=== PATIENT | male | born 1960 | race Caucasian/White ===

== ENCOUNTER 2025-05-11 14:59 | Inpatient (IN) | payer MEDICARE, SELFPAY ==
--- NOTE | ~2025-05-11 | XR_ITS ---
MODIFIED ESOPHAGRAM HISTORY: Dysphagia. TECHNIQUE: Modified barium esophagram was performed on 05/17/2025. I administered fluoroscopy and perfo rmed the exam with speech pathologist. Patient was seated for lateral fluoroscopic imaging for inges tion of thin liquids, pudding, solids and quantified amounts, followed by thin liquids in uncontrolle d amounts. This was recorded on tape. A single fluoroscopic spot image was also recorded. The DAP for this procedure was 3.101 Gycm2. The amount of fluoroscopy time used during this procedure was 4.7 mi nutes. FINDINGS: Oral stage: Reduced lingual movement. Pharyngeal stage: Reduced laryngeal elevation and adduction. Reduced tongue base retraction and phary ngeal squeeze. There is vallecular residue. There was laryngeal penetration with aspiration.. Cervical/esophageal stage: Adequate function. IMPRESSION: Oropharyngeal dysphagia with laryngeal penetration and aspiration. Please correlate with speech pathologist findings and specific feeding recommendations. Reviewed, dictated and finalized at location A. IMPRESSION: Oropharyngeal dysphagia with laryngeal penetration and aspiration. Please correlate with speech pathologist findings and specific feeding recomme ndations.
--- NOTE | ~2025-05-11 | XR_ITS ---
Exam: Abdomen 1V HISTORY: tube placement COMPARISON: None. TECHNIQUE: Supine images of the lower chest and upper abdomen FINDINGS: Nasogastric tube extends into the left upper quadrant, presumably within the proximal stomach, versus the gastroesophageal junction. IMPRESSION: Advancement of approximately 3 to 4 cm is recommended for optimal radiographic placement. Reviewed, dictated and finalized at location A.
--- NOTE | ~2025-05-11 | CT_ITS ---
CT abdomen pelvis w con Ordering provider: Vargas Bradley History: 64 years Male with . vomiting . Comparison: None. Technique: CT abdomen and pelvis with IV and without oral contrast. Automated exposure control and it erative reconstruction technique were employed. The dose-length product was 919.64 mGy-cm. 100 mL Omn ipaque 350 was given IV. Findings: VISUALIZED LOWER CHEST: Normal. UPPER ABDOMINAL ORGANS: Liver: Normal. Gallbladder: Cholelithiasis. Spleen: Normal. Stomach/duodenum: Nasogastric tube is seen in the stomach. Thickened lower esophagus which may indica te esophagitis. Pancreas: Slightly atrophic. Adrenals: Normal. Kidneys: hypodensity in the left kidney midpole which measures 1.6 cm which may be a mass. Follow-up advised. PELVIC ORGANS: The bladder is normal. Right inguinal undescended testicle is seen. BOWEL AND MESENTERY: Colon: No evidence of diverticulitis or appendicitis Small Bowel: Normal. No obstruction. Peritoneum/mesentery: No free air or free fluid. No mesenteric lymphadenopathy. RETROPERITONEUM: Moderate atheromatous disease of the abdominal aorta. No retroperitoneal lymphaden opathy. MUSCULOSKELETAL: Superficial soft tissues: Hypodensity measuring 3.2 x 2.2 cm suggestive of a cyst most likely a cyst. Small fat-containing umbilical hernia. Otherwise, The superficial soft tissues are normal. Bones: Age appropriate degenerative changes of the spine. Old healed left lower thorax rib fractures are noted. Bilateral sacroiliitis. Bilateral hip osteoarthritic changes. Bilateral femoral head AVN. IMPRESSION: 1. No evidence of appendicitis, diverticulitis or intestinal obstruction. 2. Cholelithiasis. 3. Hypodensity in the left kidney midpole which may be a mass or focal infection. Follow-up advised. 4. Bilateral femoral head AVN. 5. Right inguinal undescended or retractile right testicle. Reviewed, dictated and finalized at location A. IMPRESSION: 1. No evidence of appendicitis, diverticulitis or intestinal obstruction. 2. Cholelithiasis. 3. Hypodensity in the left kidney midpole which may be a mass or focal infecti on. Follow-up advised. 4. Bilateral femoral head AVN. 5. Right inguinal undescended or retractile right testicle.
--- NOTE | ~2025-05-11 | XR_ITS ---
XR abdomen gastric tube insert Ordering provider: LILLIAM Villa History: . NG placement/confirmataion . Comparison: None. FINDINGS/impression: Nasogastric tube is seen with the tip in the body of the stomach Reviewed, dictated and finalized at location A.
[2025-05-11 15:03] VITALS: BP 111/99; PULSE 72; RESP 17; TEMP 36.6; O2SAT 99
--- NOTE | 2025-05-11 15:26 | ED_ITS ---
HPI - General Adult General Chief complaint: Nausea/Vomiting/Diarrhea <Vargas Bradley MD - Last Filed: 05/11/25 18:10> Stated complaint: coffee ground emesis <Vargas Bradley MD - Last Filed: 05/11/25 18:10> Time Seen by Provider: 05/11/25 15:06 <Vargas Bradley MD - Last Filed: 05/11/25 18:10> History of Present Illness HPI narrative: Patient is a 64-year-old male who presents ER with concerns for coffee- ground emesis. Had an episode of emesis at his snf was sent in. History of CVA with aphasia. Can answer yes and no with head nodding. Contracted on the right side. No blood thinners but he does take an aspirin. < Vargas Bradley MD - Last Filed: 05/11/25 18:10> Related Data Allergies/adverse reactions: Allergies Allergy/AdvReac Type Severity Reaction Status Date / Time No Known Allergies Allergy Verified 05/11/25 15:31 <Vargas Bradley MD - Last Filed: 05/11/25 18:10> Review of Systems 2 Review of Systems: ROS unobtainable: Yes unobtainable due to medical condition <Vargas Bradley MD - Last Filed: 05/11/25 18:10> PMFSH Past Medical History Medical History: Medical History (Updated 05/11/25 @ 19:08 by You Thornton MD) Depression Hypertension CVA (cerebral vascular accident) <Vargas Bradley MD - Last Filed: 05/11/25 18:10> Exam 2 Narrative: GENERAL: Chronically ill-appearing, well-nourished, and in no acute distress. HEAD: Normocephalic, atraumatic. EYES: PERRL and EOMI. ENT: Nares clear, no rhinorrhea or epistaxis. Mucous membranes moist. NECK: Supple. CHEST: Clear to auscultation. No respiratory distress. HEART: Regular rate and rhythm. Normal peripheral pulses. ABDOMEN: Soft, nontender, nondistended. Pale/andre-colored stool that is guaiac positive. No gross blood. EXTREMITIES: Right-sided contractures and weakness. SKIN: Warm, dry, no rash. NEURO: Awake alert, aphasic but shakes head yes or no. <Vargas Bradley MD - Last Filed: 05/11/25 18:10> Course Course Emergency Course: SERENITY to Dr. Thornton. CT pending. Protonix orderd. NG to initially with some dark coffee-ground colored output that was less than 10 mL. He was lavaged with several hundred mL of fluid which came back clear. <Vargas Bradley MD - Last Filed: 05/11/25 18:10> SERENITY to Dr. Thornton. CT pending. Protonix orderd. NG to initially with some dark coffee-ground colored output that was less than 10 mL. He was lavaged with several hundred mL of fluid which came back clear. Patient care taken over by previous provider at 6:00pm pending CT scan and admission to the hospital for possible upper GI bleeding. Patient came from his nursing facility for an episode of coffee-ground emesis. NG tube was placed here with lavage of 10 mL of coffee-ground emesis appearing material and then flushing clear afterwards. He was given a PPI and given Zofran. CT scan shows some esophagitis but no other acute intra-abdominal pathology that explains his symptoms. His laboratory studies initially had some low hemoglobin which seem to resolve on the 2nd set of labs and potentially the 1st set was an error given that lab rejected the initial CMP as well. Spoke to the hospitalist for admission to the hospital for GI consultation and PPI treatment. Will maintain the NG tube. Admission orders and consult placed, placed on maintenance fluids, as needed Zofran and b.i.d. Protonix. <You Thornton MD - Last Filed: 05/11/25 19:08> Vital Signs Vital signs: Vital Signs Temperature 36.6 C 05/11/25 15:03 Pulse Rate 72 05/11/25 15:03 Respiratory Rate 17 05/11/25 15:03 Blood Pressure 111/99 H 05/11/25 15:03 Pulse Oximetry 99 05/11/25 15:03 Oxygen Delivery Room Air 05/11/25 15:03 Temperature 36.7 C 05/11/25 16:23 Pulse Rate 73 05/11/25 18:54 Respiratory Rate 19 05/11/25 18:54 Blood Pressure 147/82 H 05/11/25 18:54 Pulse Oximetry 98 05/11/25 18:54 Oxygen Delivery Room Air 05/11/25 15:03 <Vargas Bradley MD - Last Filed: 05/11/25 18:10> Vital Signs Temperature 36.6 C 05/11/25 15:03 Pulse Rate 72 05/11/25 15:03 Respiratory Rate 17 05/11/25 15:03 Blood Pressure 111/99 H 05/11/25 15:03 Pulse Oximetry 99 05/11/25 15:03 Oxygen Delivery Room Air 05/11/25 15:03 Temperature 36.7 C 05/11/25 16:23 Pulse Rate 73 05/11/25 18:54 Respiratory Rate 19 05/11/25 18:54 Blood Pressure 147/82 H 05/11/25 18:54 Pulse Oximetry 98 05/11/25 18:54 Oxygen Delivery Room Air 05/11/25 15:03 <You Thornton MD - Last Filed: 05/11/25 19:08> Medical Decision Making Vital Signs Vital Signs: Vital Signs Temperature 36.6 C 05/11/25 15:03 Pulse Rate 72 05/11/25 15:03 Respiratory Rate 17 05/11/25 15:03 Blood Pressure 111/99 H 05/11/25 15:03 Pulse Oximetry 99 05/11/25 15:03 Oxygen Delivery Room Air 05/11/25 15:03 Temperature 36.7 C 05/11/25 16:23 Pulse Rate 73 05/11/25 18:54 Respiratory Rate 19 05/11/25 18:54 Blood Pressure 147/82 H 05/11/25 18:54 Pulse Oximetry 98 05/11/25 18:54 Oxygen Delivery Room Air 05/11/25 15:03 <Vargas Bradley MD - Last Filed: 05/11/25 18:10> Vital Signs Temperature 36.6 C 05/11/25 15:03 Pulse Rate 72 05/11/25 15:03 Respiratory Rate 17 05/11/25 15:03 Blood Pressure 111/99 H 05/11/25 15:03 Pulse Oximetry 99 05/11/25 15:03 Oxygen Delivery Room Air 05/11/25 15:03 Temperature 36.7 C 05/11/25 16:23 Pulse Rate 73 05/11/25 18:54 Respiratory Rate 19 05/11/25 18:54 Blood Pressure 147/82 H 05/11/25 18:54 Pulse Oximetry 98 05/11/25 18:54 Oxygen Delivery Room Air 05/11/25 15:03 <You Thornton MD - Last Filed: 05/11/25 19:08> Lab Data Result diagrams: 05/11/25 16:40 05/11/25 16:02 <Vargas Bradley MD - Last Filed: 05/11/25 18:10> Labs: Lab Results 05/11/25 05/11/25 05/11/25 Range/Units 15:30 15:58 16:02 WBC 9.0 (4.5-10.0) K/mm3 RBC 2.62 L (4.6-6.20) M/mm3 Hgb 7.6 L (14.0-18.0) g/dL Hct 24.9 L (42.0-52.0) % MCV 95.0 (80-100) fl MCH 29.0 (26-34) pg MCHC 30.5 L (32-36) g/dl RDW 15.0 H (11.5-14.5) % Plt Count 113 L (150-375) k/mm3 MPV 10.4 (7.4-10.4) fl Immature Gran % (Auto) 0.6 H (0-0.5) % Neut % (Auto) 78.5 H (45.5-73.1) % Lymph % (Auto) 11.1 L (18.3-44.2) % Schuyler % (Auto) 9.1 H (2.6-8.5) % Eos % (Auto) 0.4 (0-4.4) % Baso % (Auto) 0.3 (0.2-1.2) % Lymph # (Auto) 1.00 (0.9-3.2) K/mm3 Schuyler # (Auto) 0.8 H (0.1-0.6) K/mm3 Eos # (Auto) 0.0 (0-0.3) K/mm3 Baso # (Auto) 0.0 (0.0-0.1) K/mm3 Abs Immat Gran (auto) 0.05 H (0.00-0.031) K/mm3 Absolute Neuts (auto) 7.1 H (1.3-6.7) K/mm3 Absolute Nucleated RBC 0.000 (0.0-0.012) K/mm3 Nucleated RBC % 0.0 (0.0-0.2) % PT 14.6 (11.1-14.7) Seconds INR 1.1 APTT 28.5 (22.3-36.8) Seconds Sodium 149 H (137-145) mmol/L Potassium 4.1 (3.4-5.0) mmol/L Chloride 112 H (98-107) mmol/L Carbon Dioxide 25 (22-30) mmol/L Anion Gap 12 (4-12) mmol/L BUN 22 H (9-20) mg/dL Creatinine 1.09 (0.7-1.3) mg/dL Estim Creat Clear Calc Not Reportable Estimated GFR > 60 (59 - ) Glucose 101 (65-110) mg/dL POC Capillary Glucose 108 H (65-105) mg/dl Calcium 9.4 (8.4-10.2) mg/dL Total Bilirubin 0.4 (0.2-1.3) mg/dL AST 33 (17-59) U/L ALT 22 (6-50) U/L Alkaline Phosphatase 63 (38-126) U/L Total Protein 8.0 (6.3-8.2) g/dL Albumin 4.2 (3.5-5.1) g/dL Lipase 74 (23-300) U/L 05/11/25 Range/Units 16:40 WBC 14.9 H (4.5-10.0) K/mm3 RBC 4.27 L (4.6-6.20) M/mm3 Hgb 12.4 L D (14.0-18.0) g/dL Hct 39.6 L (42.0-52.0) % MCV 92.7 (80-100) fl MCH 29.0 (26-34) pg MCHC 31.3 L (32-36) g/dl RDW 15.2 H (11.5-14.5) % Plt Count 187 D (150-375) k/mm3 MPV 10.4 (7.4-10.4) fl Immature Gran % (Auto) 0.3 (0-0.5) % Neut % (Auto) 75.4 H (45.5-73.1) % Lymph % (Auto) 14.0 L (18.3-44.2) % Schuyler % (Auto) 9.5 H (2.6-8.5) % Eos % (Auto) 0.5 (0-4.4) % Baso % (Auto) 0.3 (0.2-1.2) % Lymph # (Auto) 2.09 (0.9-3.2) K/mm3 Schuyler # (Auto) 1.4 H (0.1-0.6) K/mm3 Eos # (Auto) 0.1 (0-0.3) K/mm3 Baso # (Auto) 0.1 (0.0-0.1) K/mm3 Abs Immat Gran (auto) 0.05 H (0.00-0.031) K/mm3 Absolute Neuts (auto) 11.2 H (1.3-6.7) K/mm3 Absolute Nucleated RBC 0.000 (0.0-0.012) K/mm3 Nucleated RBC % 0.0 (0.0-0.2) % PT (11.1-14.7) Seconds INR APTT (22.3-36.8) Seconds Sodium (137-145) mmol/L Potassium (3.4-5.0) mmol/L Chloride (98-107) mmol/L Carbon Dioxide (22-30) mmol/L Anion Gap (4-12) mmol/L BUN (9-20) mg/dL Creatinine (0.7-1.3) mg/dL Estim Creat Clear Calc Estimated GFR (59 - ) Glucose (65-110) mg/dL POC Capillary Glucose (65-105) mg/dl Calcium (8.4-10.2) mg/dL Total Bilirubin (0.2-1.3) mg/dL AST (17-59) U/L ALT (6-50) U/L Alkaline Phosphatase (38-126) U/L Total Protein (6.3-8.2) g/dL Albumin (3.5-5.1) g/dL Lipase (23-300) U/L <Vargas Bradley MD - Last Filed: 05/11/25 18:10> Lab Results 05/11/25 05/11/25 05/11/25 Range/Units 15:30 15:58 16:02 WBC 9.0 (4.5-10.0) K/mm3 RBC 2.62 L (4.6-6.20) M/mm3 Hgb 7.6 L (14.0-18.0) g/dL Hct 24.9 L (42.0-52.0) % MCV 95.0 (80-100) fl MCH 29.0 (26-34) pg MCHC 30.5 L (32-36) g/dl RDW 15.0 H (11.5-14.5) % Plt Count 113 L (150-375) k/mm3 MPV 10.4 (7.4-10.4) fl Immature Gran % (Auto) 0.6 H (0-0.5) % Neut % (Auto) 78.5 H (45.5-73.1) % Lymph % (Auto) 11.1 L (18.3-44.2) % Schuyler % (Auto) 9.1 H (2.6-8.5) % Eos % (Auto) 0.4 (0-4.4) % Baso % (Auto) 0.3 (0.2-1.2) % Lymph # (Auto) 1.00 (0.9-3.2) K/mm3 Schuyler # (Auto) 0.8 H (0.1-0.6) K/mm3 Eos # (Auto) 0.0 (0-0.3) K/mm3 Baso # (Auto) 0.0 (0.0-0.1) K/mm3 Abs Immat Gran (auto) 0.05 H (0.00-0.031) K/mm3 Absolute Neuts (auto) 7.1 H (1.3-6.7) K/mm3 Absolute Nucleated RBC 0.000 (0.0-0.012) K/mm3 Nucleated RBC % 0.0 (0.0-0.2) % PT 14.6 (11.1-14.7) Seconds INR 1.1 APTT 28.5 (22.3-36.8) Seconds Sodium 149 H (137-145) mmol/L Potassium 4.1 (3.4-5.0) mmol/L Chloride 112 H (98-107) mmol/L Carbon Dioxide 25 (22-30) mmol/L Anion Gap 12 (4-12) mmol/L BUN 22 H (9-20) mg/dL Creatinine 1.09 (0.7-1.3) mg/dL Estim Creat Clear Calc Not Reportable Estimated GFR > 60 (59 - ) Glucose 101 (65-110) mg/dL POC Capillary Glucose 108 H (65-105) mg/dl Calcium 9.4 (8.4-10.2) mg/dL Total Bilirubin 0.4 (0.2-1.3) mg/dL AST 33 (17-59) U/L ALT 22 (6-50) U/L Alkaline Phosphatase 63 (38-126) U/L Total Protein 8.0 (6.3-8.2) g/dL Albumin 4.2 (3.5-5.1) g/dL Lipase 74 (23-300) U/L 05/11/25 Range/Units 16:40 WBC 14.9 H (4.5-10.0) K/mm3 RBC 4.27 L (4.6-6.20) M/mm3 Hgb 12.4 L D (14.0-18.0) g/dL Hct 39.6 L (42.0-52.0) % MCV 92.7 (80-100) fl MCH 29.0 (26-34) pg MCHC 31.3 L (32-36) g/dl RDW 15.2 H (11.5-14.5) % Plt Count 187 D (150-375) k/mm3 MPV 10.4 (7.4-10.4) fl Immature Gran % (Auto) 0.3 (0-0.5) % Neut % (Auto) 75.4 H (45.5-73.1) % Lymph % (Auto) 14.0 L (18.3-44.2) % Schuyler % (Auto) 9.5 H (2.6-8.5) % Eos % (Auto) 0.5 (0-4.4) % Baso % (Auto) 0.3 (0.2-1.2) % Lymph # (Auto) 2.09 (0.9-3.2) K/mm3 Schuyler # (Auto) 1.4 H (0.1-0.6) K/mm3 Eos # (Auto) 0.1 (0-0.3) K/mm3 Baso # (Auto) 0.1 (0.0-0.1) K/mm3 Abs Immat Gran (auto) 0.05 H (0.00-0.031) K/mm3 Absolute Neuts (auto) 11.2 H (1.3-6.7) K/mm3 Absolute Nucleated RBC 0.000 (0.0-0.012) K/mm3 Nucleated RBC % 0.0 (0.0-0.2) % PT (11.1-14.7) Seconds INR APTT (22.3-36.8) Seconds Sodium (137-145) mmol/L Potassium (3.4-5.0) mmol/L Chloride (98-107) mmol/L Carbon Dioxide (22-30) mmol/L Anion Gap (4-12) mmol/L BUN (9-20) mg/dL Creatinine (0.7-1.3) mg/dL Estim Creat Clear Calc Estimated GFR (59 - ) Glucose (65-110) mg/dL POC Capillary Glucose (65-105) mg/dl Calcium (8.4-10.2) mg/dL Total Bilirubin (0.2-1.3) mg/dL AST (17-59) U/L ALT (6-50) U/L Alkaline Phosphatase (38-126) U/L Total Protein (6.3-8.2) g/dL Albumin (3.5-5.1) g/dL Lipase (23-300) U/L <You Thornton MD - Last Filed: 05/11/25 19:08> Discharge Plan Discharge Clinical Impression: Coffee ground emesis, History of stroke <Vargas Bradley MD - Last Filed: 05/11/25 18:10> Patient Disposition: Still a Patient <Vargas Bradley MD - Last Filed: 05/11/25 18:10> Condition: Stable <Vargas Bradley MD - Last Filed: 05/11/25 18:10> Patient Language: Guatemalan <Vargas Bradley MD - Last Filed: 05/11/25 18:10> Follow-up/Referrals: Bailey,MD Donaldo [Primary Care Provider] - <Vargas Bradley MD - Last Filed: 05/11/25 18:10> Time of Disposition: 19:08 <Vargas Bradley MD - Last Filed: 05/11/25 18:10> 19:08 <You Thornton MD - Last Filed: 05/11/25 19:08>
[2025-05-11] MEDS: SODIUM CHLORIDE 0.9% IV 1,000 ML 999 ML IV CONT (15:31)
[2025-05-11] MEDS: Please add drug allergy info to patient profile. 1 EACH XX (15:32)
[2025-05-11] MEDS: ONDANSETRON INJ 4 MG/2 ML VIAL IV PUSH (15:32)
[2025-05-11 15:38] LABS: Hematocrit 24.9 % (42.0-52.0); Hemoglobin 7.6 g/dL (14.0-18.0); Immature Granulocyte Percent A 0.6 % (0-0.5); Lymphocytes Absolute Auto 1.00 K/mm3 (0.9-3.2); Mean Corpuscular HGB Conc 30.5 g/dl (32-36); Mean Corpuscular Hemoglobin 29.0 pg (26-34); Mean Corpuscular Volume 95.0 fl (80-100); Nucleated Red Blood Cells Absolute Auto 0.000 K/mm3 (0.0-0.012); Nucleated Red Blood Cells Perc 0.0 % (0.0-0.2); Platelet Count Result 113 k/mm3 (150-375); Red Blood Count 2.62 M/mm3 (4.6-6.20); White Blood Count 9.0 K/mm3 (4.5-10.0)
[2025-05-11 15:50] LABS: INR 1.1; Partial Thromboplastin Time 28.5 Seconds (22.3-36.8); Prothrombin Time 14.6 Seconds (11.1-14.7)
[2025-05-11 16:23] VITALS: BP 133/85; PULSE 69; RESP 16; TEMP 36.7; O2SAT 99
--- OUTSIDE RECORDS SUMMARY | 2025-05-11 16:27 | XMS_ITS | Continuity of Care Document ---
Author Organization [facility] Address [address] [place] [address] [place] [address] Phone Care Team Providers Care Director Outcomes Name Role Phone Todd Milton MD Unavailable Unavailable Allergies, Adverse Reactions, Alerts Substance Reaction Status Criticality No Known Allergies Active No Inform ation Advance Directives Directive Yes / No Effective Date File Name No Information Encounters Encounter Description Practice Location Reason(s) For Visit Diagnoses Date Provider Providers Copied on Encounter [facility], [address] [place] [address] [address], [place], [place], [id number], [place] tel:[phone] [address] [facility] No Information [address]. [address] [facility] [place], [id number], [place]. tel:[phone] Family History Family Member Type Diagnosis Age At Onset No Information Payers Payer name Insurance type Covered constitution party ID Authoriza tion(s) No Information Social History Type Description Quantity Date Captured Comments Alcohol Use Details Caffeine Use Details No Tobacco Use Status Smoking Status Heavy tobacco smoker Smoking Tobacco Use Details Cigarette: Age Started: 16 Cigarette: 20 Cigarettes per day Sex Male Chief Complaint And Reason For Visit No Information Reason For Referral Reason For Referral No Information Plan Of Treatment Date Type Action Status Goal Tobacco cessation counseling completed History Of Present Illness Encounter Date Complaint History Of Prese nt Illness No Information Functional Status Date Functional Assessmen t No Information Instructions Date Instruction Additional Infor mation No Information Assessments Type Assessment Date No Information Patient Care Teams Name Effective Dates (start - stop) Status Members No Information
--- OUTSIDE RECORDS SUMMARY | 2025-05-11 16:27 | XMS_ITS | Data Portability ---
Author Organization [facility] Address [address] [place] [address] Care Team Providers Care Cotton Tier Name Role Phone WILIAM QUIROS Primary Care Provider AUTUMN IZAGUIRRE Primary Care Provider Assessment No assessment recorded. Plan of Treatment Reminders Order Date Submit Date Provider Last Modified By Organization Details Last Modified Time Details Appointments ANY 30 2024 11:00A M Camilo Remy MD Not available Not available Not available Lab CBC 2018 019 SHANA [facility], [address] [facility], [address], [place], [address], 10/22/2019 06:09:17 fecal occult blood, immunoass ay, stool 2018 [facility], [address] [facility], [address], [place], [address], 10/21/2019 15:31:47 lipid panel, serum 2018 019 SHNAA [facility], [address] [facility] [address], [place], [address], 10/22/2019 06:09:17 CMP, serum or plasma 2018 019 SHANA [facility], [address], [address], [place], [address], 10/22/2019 06:09:16 vitamin B12, serum 2018 019 SHANA [facility], [address] [facility], [place], [address], 10/22/2019 06:09:18 PSA, serum or plasma 2016 017 SHANA [facility], [address], [address], [place], [address], 09/20/2017 08:23:38 hemoglobi n, qualitati ve, stool by immunolog ic method 2016 017 SHA[facility], [address], [address], [place], [address], 10/08/2017 16:17:06 CBC 2016 017 SHANA [facility], [address], [address], [place], [address], 09/20/2017 08:23:36 lipid panel, serum 2016 017 SHANA [facility]Z, [facility] [address], [address], [place], [address], 09/20/2017 08:23:36 CMP, serum or plasma 2016 017 SHANA [facility]EN[facility], [address], [address], [place], [address], 09/20/2017 08:23:35 HbA1c (hemoglob in A1c), blood 2016 017 SHANA LABANGEL LUIS[facility], [address], [address], [place], [address], 09/20/2017 08:23:37 TSH, ultra-sen sitive, serum 2016 017 SHANA LABANG[facility], [address], [address], [place], [address], 09/20/2017 08:23:37 vitamin B12, serum 2016 017 SHANA [facility], [address], [address], [place], [address], 09/20/2017 08:23:38 lipid panel, serum 2016 017 SHANA [facility], [address], [address], [place], [address], 03/18/2017 06:33:13 CMP, serum or plasma 2016 017 SHANA [facility], [address], [address], [place], [address], 03/18/2017 06:33:13 CBC 2015 016 [id number]_ [id number] [facility], [address], [address], [place], [address], 10/26/2016 04:32:18 lipid panel, serum 2015 016 DBA_PATCH_ [id number] [facility], [address], [address], [place], [address], 10/26/2016 04:32:40 CMP, serum or plasma 2015 016 [id number]_ [id number] [facility], [address], [address], [place], [address], 10/26/2016 04:32:39 Referral None recorded. Procedures None recorded. Surgeries None recorded. Imaging None recorded. Medication Orders Medrol (Anton) 4 mg tablets in a dose pack 2024 025 [facility], [address] [place], [address], 04/25/2025 12:49:04 meloxicam 15 mg tablet 2024 025 [facility], [address] [facility], [place], [address], 04/25/2025 12:49:04 Accuretic 20 mg-12.5 mg tablet 2018 019 [id number], [address], [place], [place], [id number], 10/21/2019 12:48:27 fenofibra te 160 mg tablet 2018 019 [facility]FACE [id number], [address], [place], [place], [id number], 10/21/2019 12:48:28 lovastati n 40 mg tablet 2018 019 INTERFACE [facility] #[id number], [address] , [place], [place], [id number], 10/21/2019 12:48:27 Patient TargetsNo targets recorded. Patient Instructions Encounter Date Encounter Id Patient Instructions Last Modified By Organization Details Last Modified Time 10/14/2016 [id number] continue meds as prescribed bp check in 1 month healthy diet and exercise f/u in 4 month nsuthan Not available 10/14/2016 16:05:42 pt coplaining about the copay he has to pay every time he comes for visit and he wants to come for once a year -pt was counselled on importance of follow up and monitoring of his bp /kidney function and cholesterol . nsuthan Not available 10/14/2016 16:07:55 02/10/2017 [id number] continue meds as prescribed healthy diet and exercise f/u in 4 month nsuthan Not available 02/10/2017 16:12:32 09/19/2017 [id number] A healthy lifestyle: care instructions nsuthan Not available 09/19/2017 15:04:15 continue meds as prescribed healthy diet and exercise f/u in 4 month nsuthan Not available 09/19/2017 15:18:43 10/21/2019 [id number] f/u in 1 month nsuthan Not available 10/21/2019 12:48:35 Reason for Referral None Reported. Results Created Date Observation Date Name Description Value Unit Range Abnormal Flag Note LastModifiedBy Organization Detail LastModifiedTime 10/14/20 16 10/15/2016 CMP, serum or plasm a glucose, serum 89 mg/dL 65-99 Not Available [facility]) [address] [place], [address], 10/15/2016 06:06:43 10/14/20 16 10/15/2016 CMP, serum or plasm a BUN 19 mg/dL 6-24 Not Available [facility] ([email or web address]) [address] [place], [address], 10/15/2016 06:06:43 10/14/20 16 10/15/2016 CMP, serum or plasm a creatinine, serum 1.30 mg/dL 0.76-1 .27 above high normal Not Available [facility] ([email or web address]) [address] [place], [address], 10/15/2016 06:06:43 10/14/20 16 10/15/2016 CMP, serum or plasm a eGFR if nonafricn AM 61 mL/mi n/1.7 3 >59 Not Available [facility] ([email or web address]) [address] [place], [address], 10/15/2016 06:06:43 10/14/20 16 10/15/2016 CMP, serum or plasm a eGFR if africn AM 71 mL/mi n/1.7 3 >59 Not Available [facility] ([email or web address]) [address] [place], [address], 10/15/2016 06:06:43 10/14/20 16 10/15/2016 CMP, serum or plasm a BUN/creatini ne ratio 15 9-20 Not Available [email or web address]) [address] [place], [address], 10/15/2016 06:06:43 10/14/20 16 10/15/2016 CMP, serum or plasm a sodium, serum 141 mmol/ L 136-14 4 EFF ECTIV E DECEM SANJU 2015 THE REFER ENCE INTER AMA FOR SODIU M, SERUM WILL BE BARBOSA ING TO: 134 - 144 Not Available [facility] ([facility]) [address] [place], [address], 10/15/2016 06:06:43 10/14/20 16 10/15/2016 CMP, serum or plasm a potassium, serum 4.0 mmol/ L 3.5-5. 2 Not Available [facility] ([email or web address]) [address] [place], [address], 10/15/2016 06:06:43 10/14/20 16 10/15/2016 CMP, serum or plasm a chloride, serum 100 mmol/ L 97-106 EFF ECTIV E DECEM SANJU 2015 THE REFER ENCE INTER AMA FOR CHLOR NELSON, SERUM WILL BE BARBOSA ING TO: 96 - 106 Not Available [facility] ([email or web address]) [address] [place], [address], 10/15/2016 06:06:43 10/14/20 16 10/15/2016 CMP, serum or plasm a carbon dioxide, total 24 mmol/ L 18-29 Not Available [facility] ([email or web address]) [address] [place], [address], 10/15/2016 06:06:43 10/14/20 16 10/15/2016 CMP, serum or plasm a calcium, serum 9.8 mg/dL 8.7-10 .2 Not Available [facility] ([email or web address]) [address] [place], [address], 10/15/2016 06:06:43 10/14/20 16 10/15/2016 CMP, serum or plasm a protein, total, serum 7.5 g/dL 6.0-8. 5 Not Available [facility] ([email or web address]) [address] [place], [address], 10/15/2016 06:06:43 10/14/20 10/15/2016 CMP, serum or plasm a albumin, serum 4.8 g/dL 3.5-5. 5 Not Available [facility] ([facility]) [address] [place], [address], 10/15/2016 06:06:43 10/14/20 16 10/15/2016 CMP, serum or plasm a globulin, total 2.7 g/dL 1.5-4. 5 Not Available [facility] ([facility]) [address] [place], [address], 10/15/2016 06:06:43 10/14/20 16 10/15/2016 CMP, serum or plasm a A/G ratio 1.8 1.1-2. 5 Not Available [facility] ([facility]) [address] [place], [address], 10/15/2016 06:06:43 10/14/20 16 10/15/2016 CMP, serum or plasm a bilirubin, total 0.5 mg/dL 0.0-1. 2 Not Available [facility] ([facility]) [address] [place], [address], 10/15/2016 06:06:43 10/14/20 16 10/15/2016 CMP, serum or plasm a alkaline phosphatase, S 27 IU/L 39-117 below low normal Not Available [facility] ([facility]) [address] [place], [address], 10/15/2016 06:06:43 10/14/20 16 10/15/2016 CMP, serum or plasm a AST (SGOT) 22 IU/L 0-40 Not Available [facility] ([facility]) [address] [place], [address], 10/15/2016 06:06:43 10/14/20 16 10/15/2016 CMP, serum or plasm a ALT (SGPT) 9 IU/L 0-44 Not Available [facility] ([facility]) [address], [place], [address], 10/15/2016 06:06:43 10/14/20 16 10/15/2016 CBC WBC 9.5 x10e3 /uL 3.4-10 .8 Not Available [facility] ([facility]) [address] [place], [address], 10/15/2016 06:06:44 10/14/20 16 10/15/2016 CBC RBC 3.89 x10e6 /uL 4.14-5 .80 below low normal Not Available [facility] ([facility]) [address] [address] [place], [address], 10/15/2016 06:06:44 10/14/20 16 10/15/2016 CBC hemoglobin 13.2 g/dL 12.6-1 7.7 Not Available [facility] ([facility]) [address] [place], [address], 10/15/2016 06:06:44 10/14/20 16 10/15/2016 CBC hematocrit 37.5 % 37.5-5 1.0 Not Available [facility] ([facility]) [address] [address] [place], [address], 10/15/2016 06:06:44 10/14/20 16 10/15/2016 CBC MCV 96 fL 79-97 Not Available [facility] ([facility]) [address] [place], [address], 10/15/2016 06:06:44 10/14/20 16 10/15/2016 CBC MCH 33.9 pg 26.6-3 3.0 above high normal Not Available [facility] ([facility]) [address] [place], [address], 10/15/2016 06:06:44 10/14/20 16 10/15/2016 CBC MCHC 35.2 g/dL 31.5-3 5.7 Not Available [facility] ([facility]) [address] [place], [address], 10/15/2016 06:06:44 10/14/20 16 10/15/2016 CBC RDW 13.5 % 12.3-1 5.4 Not Available [facility] ([facility]) [address] [address] [place], [address], 10/15/2016 06:06:44 10/14/20 16 10/15/2016 CBC platelets 273 x10e3 /uL 150-37 9 Not Available [facility] ([facility]) [address] [place], [address], 10/15/2016 06:06:44 10/14/20 16 10/15/2016 CBC NRBC T[place] IN Not Available [facility] ([facility]) [address], [address], 10/15/2016 06:06:44 10/14/20 16 10/15/2016 lipid panel , serum cholesterol, total 198 mg/dL 100-19 9 Not Available [facility] ([facility]) [address] [place], [address], 10/15/2016 06:06:44 10/14/20 16 10/15/2016 lipid panel , serum triglyceride s 215 mg/dL 0-149 above high normal Not Available [facility] ([facility]) [address], [address], 10/15/2016 06:06:44 10/14/20 16 10/15/2016 lipid panel , serum HDL cholesterol 56 mg/dL >39 Not Available [facility] ([facility]) [address] [place], [address], 10/15/2016 06:06:44 10/14/20 16 10/15/2016 lipid panel , serum VLDL cholesterol kenneth 43 mg/dL 5-40 above high normal Not Available [facility] ([facility]) [address] [address] [place], [address], 10/15/2016 06:06:44 10/14/20 16 10/15/2016 lipid panel , serum LDL cholesterol calc 99 mg/dL 0-99 Not Available [facility] ([facility]) [address] [place], [address], 10/15/2016 06:06:44 10/14/20 16 10/15/2016 lipid panel , serum comment: TUR[place] IN Not Available [facility] ([facility]) [address] [place], [address], 10/15/2016 06:06:44 03/17/20 17 03/18/2017 CMP, serum or plasm a glucose, serum 83 mg/dL 65-99 Not Available [facility] ([facility]) [address] [place], [address], 03/18/2017 06:33:13 03/17/20 17 03/18/2017 CMP, serum or plasm a BUN 20 mg/dL 6-24 Not Available [facility] ([facility]) [address] [place], [address], 03/18/2017 06:33:13 03/17/20 17 03/18/2017 CMP, serum or plasm a creatinine, serum 1.49 mg/dL 0.76-1 .27 above high normal Not Available [facility] ([email or web address]) [address] [place], [address], 03/18/2017 06:33:13 03/17/20 17 03/18/2017 CMP, serum or plasm a eGFR if nonafricn AM 52 mL/mi n/1.7 3 >59 below low normal Not Available [facility] ([facility]) [address] [place], [address], 03/18/2017 06:33:13 03/17/20 17 03/18/2017 CMP, serum or plasm a eGFR if africn AM 60 mL/mi n/1.7 3 >59 Not Available [facility] ([facility]) [address] [place], [address], 03/18/2017 06:33:13 03/17/20 17 03/18/2017 CMP, serum or plasm a BUN/creatini ne ratio 13 9-20 Not Available [facility] ([facility]) [address] [place], [address], 03/18/2017 06:33:13 03/17/20 17 03/18/2017 CMP, serum or plasm a sodium, serum 139 mmol/ L 134-14 4 Not Available [facility] ([facility]) [address] [place], [address], 03/18/2017 06:33:13 03/17/2003/18/2017 CMP, serum or plasm a potassium, serum 4.1 mmol/ L 3.5-5. 2 Not Available [facility] ([facility]) [address] [place], [address], 03/18/2017 06:33:13 03/17/2003/18/2017 CMP, serum or plasm a chloride, serum 100 mmol/ L 96-106 Not Available [facility] ([facility]) [address] [place], [address], 03/18/2017 06:33:13 03/17/20 17 03/18/2017 CMP, serum or plasm a carbon dioxide, total 20 mmol/ L 18-29 Not Available [facility] ([facility]) [address] [place], [address], 03/18/2017 06:33:13 03/17/2003/18/2017 CMP, serum or plasm a calcium, serum 9.9 mg/dL 8.7-10 .2 Not Available [facility] ([facility]) [address] [place], [address], 03/18/2017 06:33:13 03/17/2003/18/2017 CMP, serum or plasm a protein, total, serum 7.9 g/dL 6.0-8. 5 Not Available [facility] ([facility]) [address] [place], [address], 03/18/2017 06:33:13 03/17/2003/18/2017 CMP, serum or plasm a albumin, serum 4.8 g/dL 3.5-5. 5 Not Available [facility] ([facility]) [address] [place], [address], 03/18/2017 06:33:13 03/17/2003/18/2017 CMP, serum or plasm a globulin, total 3.1 g/dL 1.5-4. 5 Not Available [facility] ([facility]) [address] [place], [address], 03/18/2017 06:33:13 03/17/2003/18/2017 CMP, serum or plasm a A/G ratio 1.5 1.2-2. 2 Not Available [facility] ([facility]) [address] [place], [address], 03/18/2017 06:33:13 03/17/2003/18/2017 CMP, serum or plasm a bilirubin, total 0.5 mg/dL 0.0-1. 2 Not Available [facility] ([facility]) [address] [place], [address], 03/18/2017 06:33:13 03/17/2003/18/2017 CMP, serum or plasm a alkaline phosphatase, S 28 IU/L 39-117 below low normal Not Available [facility] ([facility]) [address] [place], [address], 03/18/2017 06:33:13 03/17/2003/18/2017 CMP, serum or plasm a AST (SGOT) 21 IU/L 0-40 Not Available [facility] ([facility]) [address] [place], [address], 03/18/2017 06:33:13 03/17/20 17 03/18/2017 CMP, serum or plasm a ALT (SGPT) 10 IU/L 0-44 Not Available [facility] ([facility]) [address] [place], [address], 03/18/2017 06:33:13 03/17/20 17 03/18/2017 lipid panel , serum cholesterol, total 183 mg/dL 100-19 9 Not Available [facility] ([facility]) [address] [place], [address], 03/18/2017 06:33:13 03/17/2003/18/2017 lipid panel , serum triglyceride s 185 mg/dL 0-149 above high normal Not Available [facility] ([facility]) [address] [place], [address], 03/18/2017 06:33:13 03/17/2003/18/2017 lipid panel , serum HDL cholesterol 56 mg/dL >39 Not Available [facility] ([facility]) [address] [place], [address], 03/18/2017 06:33:13 03/17/2003/18/2017 lipid panel , serum VLDL cholesterol kenneth 37 mg/dL 5-40 Not Available [facility] ([facility]) [address] [place], [address], 03/18/2017 06:33:13 03/17/2003/18/2017 lipid panel , serum LDL cholesterol calc 90 mg/dL 0-99 Not Available [facility] ([facility]) [address] [place], [address], 03/18/2017 06:33:13 03/17/20 17 03/18/2017 lipid panel , serum comment: [place] IN Not Available [facility] ([facility]) [address] [place], [address], 03/18/2017 06:33:13 09/19/20 17 09/20/2017 CMP, serum or plasm a glucose, serum 84 mg/dL 65-99 Not Available [facility] ([facility]) [address] [place], [address], 09/20/2017 08:23:35 09/19/20 17 09/20/2017 CMP, serum or plasm a BUN 17 mg/dL 6-24 Not Available [facility] ([facility]) [address] [place], [address], 09/20/2017 08:23:35 09/19/20 17 09/20/2017 CMP, serum or plasm a creatinine, serum 1.45 mg/dL 0.76-1 .27 above high normal Not Available [facility] ([facility]) [address] [place], [address], 09/20/2017 08:23:35 09/19/20 17 09/20/2017 CMP, serum or plasm a eGFR if nonafricn AM 53 mL/mi n/1.7 3 >59 below low normal Not Available [facility] ([facility]) [address] [place], [address], 09/20/2017 08:23:35 09/19/20 17 09/20/2017 CMP, serum or plasm a eGFR if africn AM 62 mL/mi n/1.7 3 >59 Not Available [facility] ([facility]) [address] [place], [address], 09/20/2017 08:23:35 09/19/20 17 09/20/2017 CMP, serum or plasm a BUN/creatini ne ratio 12 9-20 Not Available [facility] ([facility]) [address] [place] [address], [address], 09/20/2017 08:23:35 09/19/20 17 09/20/2017 CMP, serum or plasm a sodium, serum 143 mmol/ L 134-14 4 Not Available [facility] ([facility]) [address] [place], [address], 09/20/2017 08:23:35 09/19/20 17 09/20/2017 CMP, serum or plasm a potassium, serum 4.0 mmol/ L 3.5-5. 2 Not Available [facility] ([facility]) [address] [place], [address], 09/20/2017 08:23:35 09/19/20 17 09/20/2017 CMP, serum or plasm a chloride, serum 101 mmol/ L 96-106 Not Available [facility] ([facility]) [address] [place], [address], 09/20/2017 08:23:35 09/19/20 17 09/20/2017 CMP, serum or plasm a carbon dioxide, total 22 mmol/ L 18-29 Not Available [facility] ([facility]) [address] [place], [address], 09/20/2017 08:23:35 09/19/20 17 09/20/2017 CMP, serum or plasm a calcium, serum 9.4 mg/dL 8.7-10 .2 Not Available [facility] ([facility]) [address] [place], [address], 09/20/2017 08:23:35 09/19/2009/20/2017 CMP, serum or plasm a protein, total, serum 7.6 g/dL 6.0-8. 5 Not Available [facility] ([facility]) [address] [place], [address], 09/20/2017 08:23:35 09/19/2009/20/2017 CMP, serum or plasm a albumin, serum 4.6 g/dL 3.5-5. 5 Not Available [facility] ([facility]) [address] [place], [address], 09/20/2017 08:23:35 09/19/20 17 09/20/2017 CMP, serum or plasm a globulin, total 3.0 g/dL 1.5-4. 5 Not Available [facility] ([facility]) [address] [place], [address], 09/20/2017 08:23:35 09/19/20 17 09/20/2017 CMP, serum or plasm a A/G ratio 1.5 1.2-2. 2 Not Available [facility] ([facility]) [address] [place], [address], 09/20/2017 08:23:35 09/19/20 17 09/20/2017 CMP, serum or plasm a bilirubin, total 0.5 mg/dL 0.0-1. 2 Not Available [facility] ([facility]) [address] [place], [address], 09/20/2017 08:23:35 09/19/20 17 09/20/2017 CMP, serum or plasm a alkaline phosphatase, S 36 IU/L 39-117 below low normal Not Available [facility] ([facility]) [address] [place], [address], 09/20/2017 08:23:35 09/19/20 17 09/20/2017 CMP, serum or plasm a AST (SGOT) 26 IU/L 0-40 Not Available [facility] ([facility]) [address] [place], [address], 09/20/2017 08:23:35 09/19/20 17 09/20/2017 CMP, serum or plasm a ALT (SGPT) 9 IU/L 0-44 Not Available [facility] ([facility]) [address] [place], [address], 09/20/2017 08:23:35 09/19/20 17 09/20/2017 CBC WBC 7.3 x10e3 /uL 3.4-10 .8 Not Available [facility] ([facility]) [address] [place], [address], 09/20/2017 08:23:36 09/19/20 17 09/20/2017 CBC RBC 4.04 x10e6 /uL 4.14-5 .80 below low normal Not Available [facility] ([facility]) [address] [place], [address], 09/20/2017 08:23:36 09/19/20 17 09/20/2017 CBC hemoglobin 13.5 g/dL 12.6-1 7.7 Not Available [facility] ([facility]) [address] [place], [address], 09/20/2017 08:23:36 09/19/20 17 09/20/2017 CBC hematocrit 38.9 % 37.5-5 1.0 Not Available [facility] ([facility]) [address] [place], [address], 09/20/2017 08:23:36 09/19/20 17 09/20/2017 CBC MCV 96 fL 79-97 Not Available [facility] ([facility]) [address] [place], [address], 09/20/2017 08:23:36 09/19/20 17 09/20/2017 CBC MCH 33.4 pg 26.6-3 3.0 above high normal Not Available [facility] ([facility]) [address] [place], [address], 09/20/2017 08:23:36 09/19/20 17 09/20/2017 CBC MCHC 34.7 g/dL 31.5-3 5.7 Not Available [facility] ([facility]) [address] [place], [address], 09/20/2017 08:23:36 09/19/20 17 09/20/2017 CBC RDW 13.6 % 12.3-1 5.4 Not Available [facility] ([facility]) [address], [place], [address], 09/20/2017 08:23:36 09/19/20 17 09/20/2017 CBC platelets 296 x10e3 /uL 150-37 9 Not Available [facility] ([facility]) [address], [place], [address], 09/20/2017 08:23:36 09/19/20 17 09/20/2017 CBC NRBC [place] IN Not Available [facility] ([facility]) [address], [place], [address], 09/20/2017 08:23:36 09/19/20 17 09/20/2017 lipid panel , serum cholesterol, total 173 mg/dL 100-19 9 Not Available [facility] ([facility]) [address] [place], [address], 09/20/2017 08:23:36 09/19/20 17 09/20/2017 lipid panel , serum triglyceride s 171 mg/dL 0-149 above high normal Not Available [facility] ([facility]) [address], [place], [address], 09/20/2017 08:23:36 09/19/20 17 09/20/2017 lipid panel , serum HDL cholesterol 55 mg/dL >39 Not Available [facility] ([facility]) [address], [place], [address], 09/20/2017 08:23:36 09/19/20 17 09/20/2017 lipid panel , serum VLDL cholesterol kenneth 34 mg/dL 5-40 Not Available [facility] ([facility]) [address] [place], [address], 09/20/2017 08:23:36 09/19/20 17 09/20/2017 lipid panel , serum LDL cholesterol calc 84 mg/dL 0-99 Not Available [facility] ([facility]) [address] [place], [address], 09/20/2017 08:23:36 09/19/20 17 09/20/2017 lipid panel , serum comment: TUR[place] IN Not Available [facility] ([facility]) [address], [place], [address], 09/20/2017 08:23:36 09/19/20 17 09/20/2017 HbA1c (hemo globi n A1c), blood hemoglobin A1C 5.1 % 4.8-5. 6 Pre-d iabet es: 5.7 - 6.4 Diabe bill: >6.4 Glyce jenni contr ol for adult s with diabe bill: <7.0 Not Available [facility] ([facility]) [address], [place], [address], 09/20/2017 08:23:37 09/19/20 17 09/20/2017 TSH, ultra -sens itive , serum TSH 2.810 uIU/m L 0.450- 4.500 Not Available [facility] ([facility]) [address], [place], [address], 09/20/2017 08:23:37 09/19/20 17 09/20/2017 PSA, serum or plasm a prostate specific Ag, serum 0.5 NG/mL 0.0-4. 0 Teodoro ECLIA metho dolog y. Accor ding to the [employer], Serum PSA shoul d decre ase and remai n at undet ectab le level s after radic al prost atect alexander. The AUA defin es bioch emica l recur rence as an initi al PSA value 0.2 ng/mL or great er follo wed by a subse quent confi rmato ry PSA value 0.2 ng/mL or great er. Value s obtai pamela with diffe rent assay metho ds or kits canno t be used inter barbosa eably . Resul ts canno t be inter prete d as absol inupiat evide nce of the prese nce or absen ce of angela amezquita disea se. Not Available [facility] ([facility]) [address] [place], [address], 09/20/2017 08:23:37 09/19/20 17 09/20/2017 vitam in B12, serum vitamin B12 348 pg/mL 211-94 6 Not Available [facility] ([facility]) [address] [place], [address], 09/20/2017 08:23:38 10/05/20 17 10/08/2017 hemog lobin , quali tativ e, stool by immun ologi c metho d occult blood, fecal, ia Negati ve negati ve Not Available [facility] ([facility]) [address] [place], [address], 10/08/2017 16:17:06 10/21/20 19 10/22/2019 CMP, serum or plasm a glucose 108 mg/dL 65-99 above high normal Not Available [facility] ([facility]) [address] [place], [address], 10/22/2019 06:09:16 10/21/2010/22/2019 CMP, serum or plasm a BUN 13 mg/dL 6-24 Not Available [facility] ([facility]) [address] [place], [address], 10/22/2019 06:09:16 10/21/2010/22/2019 CMP, serum or plasm a creatinine 1.05 mg/dL 0.76-1 .27 Not Available [facility] ([facility]) [address] [place], [address], 10/22/2019 06:09:16 10/21/2010/22/2019 CMP, serum or plasm a eGFR if nonafricn AM 78 mL/mi n/1.7 3 >59 Not Available [facility] ([facility]) [address] [place], [address], 10/22/2019 06:09:16 10/21/20 10/22/2019 CMP, serum or plasm a eGFR if africn AM 90 mL/mi n/1.7 3 >59 Not Available [facility] ([facility]) [address] [place], [address], 10/22/2019 06:09:16 10/21/2010/22/2019 CMP, serum or plasm a BUN/creatini ne ratio 12 9-20 Not Available [facility] ([facility]) [address] [place], [address], 10/22/2019 06:09:16 10/21/2010/22/2019 CMP, serum or plasm a sodium 142 mmol/ L 134-14 4 Not Available [facility] ([facility]) [address] [place], [address], 10/22/2019 06:09:16 10/21/2010/22/2019 CMP, serum or plasm a potassium 4.2 mmol/ L 3.5-5. 2 Not Available [facility] ([email or web address]) [address] [place], [address], 10/22/2019 06:09:16 10/21/2010/22/2019 CMP, serum or plasm a chloride 102 mmol/ L 96-106 Not Available [facility] ([email or web address]) [address] [place], [address], 10/22/2019 06:09:16 10/21/2010/22/2019 CMP, serum or plasm a carbon dioxide, total 22 mmol/ L 20-29 Not Available [facility] ([email or web address]) [address] [place], [address], 10/22/2019 06:09:16 10/21/2010/22/2019 CMP, serum or plasm a calcium 9.3 mg/dL 8.7-10 .2 Not Available [facility] ([email or web address]) [address] [place], [address], 10/22/2019 06:09:16 10/21/2010/22/2019 CMP, serum or plasm a protein, total 7.4 g/dL 6.0-8. 5 Not Available [facility] ([facility]) [address] [place], [address], 10/22/2019 06:09:16 10/21/2010/22/2019 CMP, serum or plasm a albumin 4.5 g/dL 3.5-5. 5 Not Available [facility] ([facility]) [address] [place], [address], 10/22/2019 06:09:16 10/21/2010/22/2019 CMP, serum or plasm a globulin, total 2.9 g/dL 1.5-4. 5 Not Available [facility] ([facility]) [address] [place], [address], 10/22/2019 06:09:16 10/21/2010/22/2019 CMP, serum or plasm a A/G ratio 1.6 1.2-2. 2 Not Available [facility] ([facility]) [address] [place], [address], 10/22/2019 06:09:16 10/21/2010/22/2019 CMP, serum or plasm a bilirubin, total 0.7 mg/dL 0.0-1. 2 Not Available [facility] ([facility]) [address] [place], [address], 10/22/2019 06:09:16 10/21/2010/22/2019 CMP, serum or plasm a alkaline phosphatase 53 IU/L 39-117 Not Available [facility] ([facility]) [address] [place], [address], 10/22/2019 06:09:16 10/21/2010/22/2019 CMP, serum or plasm a AST (SGOT) 30 IU/L 0-40 Not Available [facility] ([facility]) [address] [place], [address], 10/22/2019 06:09:16 10/21/2010/22/2019 CMP, serum or plasm a ALT (SGPT) 10 IU/L 0-44 Not Available [facility] ([facility]) [address] [place], [address], 10/22/2019 06:09:16 10/21/2010/22/2019 CBC WBC 8.6 x10e3 /uL 3.4-10 .8 Not Available [facility] ([facility]) [address] [place], [address], 10/22/2019 06:09:16 10/21/2010/22/2019 CBC RBC 4.21 x10e6 /uL 4.14-5 .80 Not Available [facility] ([facility]) [address] [place], [address], 10/22/2019 06:09:16 10/21/2010/22/2019 CBC hemoglobin 14.0 g/dL 13.0-1 7.7 Not Available [facility] ([facility]) [address] [place], [address], 10/22/2019 06:09:16 10/21/2010/22/2019 CBC hematocrit 41.5 % 37.5-5 1.0 Not Available [facility] ([facility]) [address] [place], [address], 10/22/2019 06:09:16 10/21/2010/22/2019 CBC MCV 99 fL 79-97 above high normal Not Available [facility] ([facility]) [address] [place], [address], 10/22/2019 06:09:16 10/21/2010/22/2019 CBC MCH 33.3 pg 26.6-3 3.0 above high normal Not Available [facility] ([facility]) [address] [place], [address], 10/22/2019 06:09:16 10/21/2010/22/2019 CBC MCHC 33.7 g/dL 31.5-3 5.7 Not Available [facility] ([facility]) [address] [place], [address], 10/22/2019 06:09:16 10/21/2010/22/2019 CBC RDW 14.6 % 12.3-1 5.4 Eff ectiv e Janua ry 2019, the RDW pedia tric refer ence* * inter ama will be remov ed and the adult refer ence inter ama will be barbosa ing to: Femal e 11.7 - 15.4 Male 11.6 - 15.4 Not Available [facility] ([facility]) [address] [place], [address], 10/22/2019 06:09:16 10/21/2010/22/2019 CBC platelets 156 x10e3 /uL 150-45 0 Not Available [facility] ([facility]) [address] [place], [address], 10/22/2019 06:09:16 10/21/2010/22/2019 CBC NRBC [place] Not Available [facility] ([facility]) [address] [place], [address], 10/22/2019 06:09:16 10/21/2010/22/2019 lipid panel , serum cholesterol, total 180 mg/dL 100-19 9 Not Available [facility] ([facility]) [address] [place], [address], 10/22/2019 06:09:17 10/21/2010/22/2019 lipid panel , serum triglyceride s 271 mg/dL 0-149 above high normal Not Available [facility] ([facility]) [address] [place], [address], 10/22/2019 06:09:17 10/21/2010/22/2019 lipid panel , serum HDL cholesterol 61 mg/dL >39 Not Available [facility] ([facility]) [address], [place], [address], 10/22/2019 06:09:17 10/21/2010/22/2019 lipid panel , serum VLDL cholesterol kenneth 54 mg/dL 5-40 above high normal Not Available [facility] ([facility]) [address], [place], [address], 10/22/2019 06:09:17 10/21/2010/22/2019 lipid panel , serum LDL cholesterol calc 65 mg/dL 0-99 Not Available [facility] ([facility]) [address] [place], [address], 10/22/2019 06:09:17 10/21/2010/22/2019 lipid panel , serum comment: [place] Not Available [facility] ([facility]) [address], [place], [address], 10/22/2019 06:09:17 10/21/2010/22/2019 vitam in B12, serum vitamin B12 367 pg/mL 232-12 45 Not Available [facility] ([facility]) [address] [place], [address], 10/22/2019 06:09:18 Result Notes None recorded. Problems Name Problem SNOMED Code Status Onset Date Resolution Date Notes Provider Name and Address Organization Details Recorded Time Essential hypertensi on 70005200 Active Wiliam Quiros MD Attn: Manuel smith,[address] [facility], [place], [address], [facility] - [facility] 6 13:22:58 Hyperlipid emia 89695717 Active Wiliam Quiros MD Attn: Manuel smith,[address] [facility], [place], [address], [facility] 6 13:22:58 Macrocytos is - no anemia 172336312 Active Wiliam Quiros MD Attn: Manuel smith,[address] [facility], [place], [address], [facility] 6 13:22:58 Lesion of tongue 036779839 Active did not see oral surgeon Wiliam Quiros MD Attn: Manuel smith,[address] [facility], [place], [address], [facility] 6 15:40:08 Renal failure syndrome 91572458 Active nephrologi st Petra Quiros MD Attn: aMnuel smith,[address] [facility], [place], [address], [facility] 6 15:36:40 Problem Notes None recorded. Procedures Surgical History Date Name Laterality Status Provider Name and Address Organization Details Recorded Time Knee Surgery completed Josette Gibbs [facility] 10/14/2016 15:21:05 Imaging Results None recorded. Procedure Notes None recorded. Medical Equipment None Reported. Allergies No known drug allergies Medications Name Sig Start Date Stop Date Status Note LastModified by Organization Details LastModified Time meloxicam 15 mg tablet Take 1 tablet every day by oral route. 025 active Not Available Not Available Not Avai lable Medrol (Anton) 4 mg tablets in a dose pack Take 1 dose pk every day by oral route, for Take per package instructi ons. 025 active Not Available Not Available Not Avai lable lovastatin 40 mg tablet TAKE 1 TABLET BY MOUTH EVERY NIGHT AT BEDTIME 019 active Not Available Not Available Not Avai lable quinapril 20 mg-hydrochlor othiazide 12.5 mg tablet TAKE 1 TABLET BY MOUTH EVERY DAYNE ED APPOINTME NT 020 active Not Available Not Available Not Avai lable fenofibrate 160 mg tablet TAKE 1 TABLET BY MOUTH DAILY 019 active Not Available Not Available Not Avai lable Vitamin B12 active Not Available Not A vailable Not Available Vitals Date Recorded Body height Body weight Body mass index (BMI) Heart rate Respiratory rate Body temperature Oxygen saturation Oxygen saturation in Arterial blood by Pulse oximetry Systolic blood pressure Diastolic blood pressure Provider Name and Address Organization Details Last Updated DateTime 7 175.26 cm 17472.2 g 27.1 kg/m2 78 /min 12 /min 98.2 [degF] 99 % 99 % 138 mm[Hg] 90 mm[Hg] Josette Gibbs [facility] 7 15:54:09 Date Recorded Heart rate Body temperature Systolic blood pressure Diastolic blood pressure Provider Name and Address Organization Details Last Updated DateTime 04/25/2025 73 /min 96.9 [degF] 114 mm[Hg] 72 mm[Hg] Mario Barlow MA [facility] 04/25/2025 12:26:57 Date Recorded Body height Body mass index (BMI) Body weight Heart rate Respiratory rate Body temperature Oxygen saturation Oxygen saturation in Arterial blood by Pulse oximetry Systolic blood pressure Diastolic blood pressure Provider Name and Address Organization Details Last Updated DateTime 7 175.26 cm 26.7 kg/m2 19438.1 4 g 76 /min 12 /min 98.2 [degF] 99 % 99 % 136 mm[Hg] 88 mm[Hg] HEATHER Hidalgo [facility] 7 14:54:25 Date Recorded Systolic blood pressure Diastolic blood pressure Provider Name and Address Organization Details Last Updated DateTime 10/14/2016 145 mm[Hg] 90 mm[Hg] Wiliam Quiros MD Attn: Accounting,[address] [place], [address], [facility] 10/14/2016 16:09:29 Date Recorded Body height Body weight Body mass index (BMI) Heart rate Respiratory rate Body temperature Oxygen saturation Oxygen saturation in Arterial blood by Pulse oximetry Systolic blood pressure Diastolic blood pressure Provider Name and Address Organization Details Last Updated DateTime 6 175.26 cm 62103.4 9 g 27.6 kg/m2 74 /min 12 /min 98.1 [degF] 100 % 100 % 158 mm[Hg] 98 mm[Hg] Josette Gibbs [facility] 6 15:16:11 Date Recorded Body height Body mass index (BMI) Body weight Heart rate Respiratory rate Body temperature Oxygen saturation Oxygen saturation in Arterial blood by Pulse oximetry Systolic blood pressure Diastolic blood pressure Provider Name and Address Organization Details Last Updated DateTime 9 175.26 cm 26.3 kg/m2 13637.5 2 g 95 /min 14 /min 98.4 [degF] 98 % 98 % 154 mm[Hg] 108 mm[Hg] Josette Gibbs MA [place] - [facility] 9 12:30:11 Social History Question Answer Notes LastModified by Organizat ion Details LastModified Time Tobacco Smoking Status Current Every Day Smoker Cesilia Cardona MA null, [place] - [facility] 12/12/2015 10:02:18 What Is Your Level Of Caffeine Consumption? Moderate Coffee Information not available 10/14/2016 How Much Tobacco Do You Chew? None Information not available 04/15/2016 What Type Of Diet Are You Following? REGULAR Information not available 04/15/2016 Which Illicit Or Recreational Drugs Have You Used? Cesar Information not available 10/14/2016 Education 12 Information no t available 10/21/2019 Are There Any Guns Present In Your Home? No Information not available 04/15/2016 Hard Of Hearing Or Deaf In One Or Both Ears? No Information not available 04/15/2016 Legally Blind In One Or Both Eyes? No Information no t available 04/15/2016 Marital Status Informatio n not available 10/14/2016 What Was The Date Of Your Most Recent Tobacco Screening? 09/19/2017 Information not available 06/03/2019 Performs Monthly Self-breast Exam? No Information no t available 04/15/2016 Seat Belts Used Routinely Yes Information not available 04/15/2016 Smoke Alarm In Home Yes Information not available 04/15/2016 At What Age Did You Start Smoking Tobacco? 17 Information not available 10/14/2016 How Much Tobacco Do You Smoke? 1 PPD Information not available 12/12/2015 General Stress Level Low Information not available 04/15/2016 Do You Use Sunscreen Routinely? No Information not available 04/15/2016 How Many Years Have You Smoked Tobacco? 40 Information not available 10/14/2016 Sex: Unknown Functional Status Question Answer Note LastModified by Organizat ion Details LastModified Time What is your level of alcohol consumption? Moderate Information not available 12/12/2015 Do you or have you ever used smokeless tobacco? 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 Never used electronic cigarettes Information not available 10/21/2019 What is your exercise level? Moderate Information not available 10/14/2016 Mental Status None recorded. Family History Relationship Description Onset Age of this Age Resolved Age Notes LastModified by Organization Details LastModified Time Father Essential hypertension [email or web address] Not available 0 04/15/2016 16:41:54 Medical History Condition Response Coronary Artery Disease N Other N High Blood Pressure Y Atrial Fibrillation N Kidney or Bladder Problems N Thyroid Problems N GI Problems N Depression N COPD N Blood Clots N Skin Problems N Anemia N Heart Attack ([place]) N Anxiety Disorder N Diabetes N Muscle, Joint, or Bone Problems N Seizures/Epilepsy N Acid Reflux (GERD) N Cancer N Stroke N Asthma N Allergies N High Cholesterol Y Hepatitis N Liver Disease N Headaches N Heart Failure N Osteoporosis N Immunizations Vaccine Type Date Status Note Provider Nam e and Address Organization Details Recorded Time Influenza, split virus, quadrivalent, preservative 7 completed Not Available [facility] 11/27/2019 02:34:47 Tdap 7 completed Not Available [facility] 11/27/2019 02:47:20 Influenza, split virus, quadrivalent, PF 9 completed Not Available [facility] 11/27/2019 02:48:34 Past Encounters Encounter ID Performer Location Encounter Start Date Encounter Closed Date Diagnosis/Indication Diagnosis SNOMED-CT Code Diagnosis ICD10 Code Diagnosis Note [id number] MD Reva Pophalto (Adult Med) [address] [place] [address] 12/12/2015 09:48:35 12/13/2015 17:27:33 Essential hypertension 91497210 I10 low salt diet and exercise continue same Hyperlipidemia 35329135 E78.4 continue same Screening for malignant neoplasm of colon 874387138 Z12.11 Screening for malignant neoplasm of prostate 011555182 Z12.5 [id number] MD Reva Pophalto (Adult Med) [address] [place] [address] 04/15/2016 16:10:39 04/16/2016 09:54:09 Essential hypertension 99925312 I10 low salt diet and exercise continue same Hyperlipidemia 85407110 E78.2 continue Lovastatin / fenofibrat e Lesion of tongue 3648376 05 K14.9 small growth on tongue [id number] MD Reva Pophalto (Adult Med) [address] [place] [address] 10/14/2016 15:00:29 10/14/2016 16:36:17 Essential hypertension 91166065 I10 not well controlled pt is on Quinaprilh ctSeen by nephrologi st who recommende d CCB or B catarina if kidney function worsen -pt declined med change at present time.pt quit smokingbp check in 3-4 wks Hyperlipidemia 28671667 E78.2 continue Lovastatin / fenofibrat e Renal fail ure syndrome 66754246 N19 pt is seeing nephrologi [facility]isa [facility] [id number] [facility] [address] [place] [address] 02/10/2017 15:30:38 02/10/2017 16:19:13 Essential hypertension 42524995 I10 fair controlpt is on Quinaprilh ctSeen by nephrologi st who recommende d CCB or B catarina if kidney function worsen -pt declined med change at present time.pt quit smoking Hyperlipidemia 13676899 E78.2 continue Lovastatin / fenofibrat e [id number] MD Reva Pophalto (Adult Med) [address] [place] [address] 09/19/2017 14:38:58 09/23/2017 15:08:30 Essential hypertension 39489355 I10 pt is on Quinaprilh ct Seen by nephrologi st who recommende d CCB or B catarina if kidney function worsen -pt declined med change at present time.pt to quit smoking Hyperlipidemia 18479980 E78.2 continue Lovastatin / fenofibrat e Administra tion of influenza vaccine 63683197 Z23 Screening for malignant neoplasm of colon 663066482 Z12.11 pt declined colonoscop y at this time Administra tion of diphtheria, pertussis, and tetanus vaccine 805996320 Z23 Screening for malignant neoplasm of prostate 108560382 Z12.5 Macrocytos is - no anemia 178481811 D75.89 pt to avoid alcohol [id number] MD [facility] (Adult Med) [address] [place] [address] 10/21/2019 11:52:08 10/22/2019 09:15:28 Administration of influenza vaccine 53737547 Z23 Screening for malignant neoplasm of colon 267800483 Z12.11 pt declined colonoscop y at this time Essential hypertension 51213889 I10 not well controlled due to noncomplia nt .pt to go back on Quinaprilh ct once daily for now ( was on bid previously )pt to quit smoking Hyperlipidemia 38844102 E78.2 noncomplia nt with med .pt to restart Lovastatin / fenofibrat e Macrocytos is - no anemia 612342893 D75.89 pt to avoid alcohol Pre-surger y evaluation 522127958 Z01.818 of L/eye cataract sx -pt is low risk for cataract sx -pt to start back on his bp pills Reactive d epression (situational) 36892406 F32.9 pt is feeling sad about his eye sight and having difficulty to drive to work especially at night .will reassess with f/u [id number] Camilo Remy MD [facility] [address], [address] [place] [address] 04/25/2025 12:19:56 04/25/2025 14:32:42 Lumbar radiculopathy 462469107 M54.16 Xrays of right hip/knee show mild degenerati ve changes.If symptoms persist will plan on lumbar imaging, and referral to auth specialist . Health Concerns Section Related Observation LastModified by Organization Detai ls LastModified Time None Recorded Concern Status LastModified by Organization Details LastModified Time None Recorded Advance Directives Directive None Recorded Payers Insurance Date Sequence Insurance Name Policy Number Policy Ortiz Covered Member ID Ortiz Member ID Guarantor Name 11/15/2019 1 [id number] [id number] Chiki Joel [id number] Chiki Joel Notes Date Note Type Note Provider Name and Address Organization Details Recorded Time 6 text/html HyperlipidemiaReported bypatient.Type of hyperlipidemia:combined Duration:chronic Current Therapy:currently taking: (lovastatin/ fenofibrate) Compliance:compliant Complications:no coronary artery disease Risk Factors:hypertension;smokin gHypertension F/UReported bypatient.Associated Symptoms:no dizziness; no chest pain; no edema Lifestyle:limiting/avoiding salt Medications:taking medications as directed; no side effects from medication Wiliam Quiros MD Attn: [facility],[address] [place] [address] 10/14/2016 16:10:46 7 text/html HyperlipidemiaReported bypatient.Type of hyperlipidemia:combined Duration:chronic Current Therapy:currently taking: (lovastatin/ fenofibrate) Compliance:compliant Complications:no coronary artery disease Risk Factors:hypertension;smokin gHypertension F/UReported bypatient.Associated Symptoms:no dizziness; no chest pain; no edema Lifestyle:limiting/avoiding salt Medications:taking medications as directed; no side effects from medication Wiliam Quiros MD Attn: [facility],[address] [place] [address], [address] [place] [address] 02/10/2017 16:13:20 7 text/html HyperlipidemiaReported bypatient.Type of hyperlipidemia:combined Duration:chronic Current Therapy:currently taking: (lovastatin/ fenofibrate) Compliance:compliant Complications:no coronary artery disease Risk Factors:hypertension;smokin gHypertension F/UReported bypatient.Associated Symptoms:no dizziness; no chest pain; no edema Lifestyle:limiting/avoiding salt Medications:taking medications as directed; no side effects from medication Wiliam Quiros MD Attn: [address], [address] [place] [address], [facility] 09/19/2017 15:20:27 9 text/html HyperlipidemiaReported bypatient.Type of hyperlipidemia:combined Duration:chronic Compliance:noncompliant Complications:no coronary artery disease Risk Factors:hypertension;smokin gHypertension F/UReported bypatient.Associated Symptoms:no dizziness; no chest pain; no edema Lifestyle:limiting/avoiding salt Medications:no side effects from medication;not taking medications as directed pt is here after 2 yrs , not taking his meds for yrs . pt is planning to have cataract sx . Wiliam Quiros MD Attn: Accounting,[address] [place], [address], [facility] 10/21/2019 15:14:14 5 text/html 64 year old male presents today with a long history of right leg pain. He states pain radiates down the right leg. He also states he's having numbness and tingling. He has history of CVA with right sided hemiplegia. History difficult to obtain due to dysphagia Camilo Remy MD [address] [place], [address], [facility] 04/25/2025 13:15:04
[2025-05-11 16:28] LABS: Alanine Aminotransferase 22 U/L (6-50); Albumin Level 4.2 g/dL (3.5-5.1); Alkaline Phosphatase 63 U/L (38-126); Anion Gap 12 mmol/L (4-12); Aspartate Amino Transferase 33 U/L (17-59); Bilirubin,Total 0.4 mg/dL (0.2-1.3); Blood Urea Nitrogen 22 mg/dL (9-20); Calcium 9.4 mg/dL (8.4-10.2); Carbon Dioxide 25 mmol/L (22-30); Chloride 112 mmol/L (98-107); Estimated Glomerular Filt Rate > 60; Glucose 101 mg/dL (65-110); Lipase 74 U/L (23-300); Potassium 4.1 mmol/L (3.4-5.0); Sodium 149 mmol/L (137-145); Total Protein 8.0 g/dL (6.3-8.2)
[2025-05-11 16:45] LABS: Hematocrit 39.6 % (42.0-52.0); Hemoglobin 12.4 g/dL (14.0-18.0); Immature Granulocyte Percent A 0.3 % (0-0.5); Lymphocytes Absolute Auto 2.09 K/mm3 (0.9-3.2); Mean Corpuscular HGB Conc 31.3 g/dl (32-36); Mean Corpuscular Hemoglobin 29.0 pg (26-34); Mean Corpuscular Volume 92.7 fl (80-100); Nucleated Red Blood Cells Absolute Auto 0.000 K/mm3 (0.0-0.012); Nucleated Red Blood Cells Perc 0.0 % (0.0-0.2); Platelet Count Result 187 k/mm3 (150-375); Red Blood Count 4.27 M/mm3 (4.6-6.20); White Blood Count 14.9 K/mm3 (4.5-10.0)
[2025-05-11 16:58] VITALS: BP 130/79; PULSE 68; RESP 17; O2SAT 95
[2025-05-11 18:21] VITALS: BP 131/69; PULSE 71; RESP 17; O2SAT 97
[2025-05-11] MEDS: PANTOPRAZOLE SODIUM IV 40 MG VIAL IV PUSH (18:21)
[2025-05-11 18:54] VITALS: BP 147/82; PULSE 73; RESP 19; O2SAT 98
--- NOTE | 2025-05-11 19:40 | PM.IMHP ---
H&P: HPI History of Present Illness Date/Time: 05/11/25 19:40 Chief Complaint: Vomiting coffee ground emesis Narrative: This is a 64 year old male pt who resides at [facility] in [place] and has a hx of CVA, with right sided contracture/flaccidity, severe dysphagia, HTN, Depression, HLD and Anxiety who is brought to the ER for complaints of having an episode of emesis today that appeared to have coffee ground appearance. Pt is not able to communicate any acute symptoms, and can only nod yes and no. Even with that, it is not evident how much the pt truly understands of the conversation. In the ER an NG tube was placed with return of approximately 10 ml of coffee ground emesis. VSS, and labs notable for Sodium of 149, and WBC's of 14.9. CT abd and pelvis with contrast showing no acute diverticulitis, appendicitis or other acute abdomen, but there are findings of cholelithiasis, bilateral femoral head AVN, a right undescended testicle and a hypodensity in the left kidney with etiology considered being a mass or focal infection. He has received IV Protonix, LR and zofran. He has a noted normal H&H of 12.4/39.6. EMR was reviewed and shows a hx of ETOH abuse in his past. Suspect this may be a potential PUD. He is being admitted for GI evaluation and further management. Review of Systems Review of Systems: ROS unobtainable: Yes unobtainable due to medical condition (Severely dysphagic) [facility] Past Medical History Medical History (Updated 05/11/25 @ 19:54 by LILLIAM Villa) HLD (hyperlipidemia) Depression Hypertension CVA (cerebral vascular accident) Meds Home Medications and Allergies Allergies Allergy/AdvReac Type Severity Reaction Status Date / Time No Known Allergies Allergy Verified 05/11/25 15:31 Vital Signs Vital Signs - 24 hr 05/11/25 15:03 05/11/25 16:23 05/11/25 16:58 Temperature 97.8 F 98.0 F Pulse Rate 72 69 68 Respiratory Rate 17 16 17 Blood Pressure 111/99 H 133/85 130/79 Pulse Oximetry 99 99 95 Oxygen Delivery Room Air 05/11/25 18:21 05/11/25 18:54 Temperature Pulse Rate 71 73 Respiratory Rate 17 19 Blood Pressure 131/69 147/82 H Pulse Oximetry 97 98 Oxygen Delivery Exam Const: General: comfortable and no acute distress Other: Male pt appearing older than documented age, lying supine on the stretcher at this time in no acute distress. HENMT: Face/Nose/Sinus: Normal nares present (NG tube present right nare.) Mouth: Yes dry mucous membranes Other: Evidence of dried coffee ground emesis around pt's mouth. Eyes: General: appearance normal, both eyes and all related structures Sclera: sclerae normal Pupils: Equal, round and reactive pupils present Neck: Neck: supple and no JVD Lymphatic: lymphadenopathy not noted Resp: Effort & Inspection: normal respiratory effort Auscultation: clear to auscultation bilaterally Cardio: Rate: regular rate Rhythm: regular rhythm Heart sounds: no gallops, no murmurs and no rubs GI: Inspection: non-distended GI Palp: Yes Soft to palpation and Yes Tenderness to palpation present (GI) (epigastric) Auscultation: normal bowel sounds Skin: General skin exam: normal color and no rashes or lesions noted Wounds: no wounds Neuro: Speech: No normal speech (Advanced dysphagia. Unable to comprehend his speech.) Motor exam (neuro): Abnormal motor strength present (RUE contracture, weak RLE) Other: All abnormalities due to previous CVA. No current new focal abnormalities. Extrem: General: normal to inspection and no edema Psych: Other: Unable to determine as pt has deficit with communication. He is cooperative. H&P: Results Labs Labs: Short CBC 05/11/25 05/11/25 Range/Units 15:30 16:40 WBC 9.0 14.9 H (4.5-10.0) K/mm3 Hgb 7.6 L 12.4 L D (14.0-18.0) g/dL Hct 24.9 L 39.6 L (42.0-52.0) % Plt Count 113 L 187 D (150-375) k/mm3 BMP 05/11/25 16:02 Sodium 149 H Potassium 4.1 Chloride 112 H Carbon Dioxide 25 BUN 22 H Creatinine 1.09 Glucose 101 Calcium 9.4 Liver Function 05/11/25 Range/Units 16:02 Total Bilirubin 0.4 (0.2-1.3) mg/dL AST 33 (17-59) U/L ALT 22 (6-50) U/L Alkaline Phosphatase 63 (38-126) U/L Albumin 4.2 (3.5-5.1) g/dL Assessment and Plan Assessment and plan (1) Coffee ground emesis: Code(s): K92.0 - Hematemesis Status: Acute Assessment and Plan: New onset today NG tube present to LWIS Protonix 40 mg IVP Q12 hrs Zofran 4 mg IVP PRN nausea NPO Consult GI Trend labs and VS for hemodynamic instability Hold any ASA or Anticoagulation. (2) History of stroke: Code(s): Z86.73 - Personal history of transient ischemic attack (TIA), and cerebral infarction without residual deficits Status: Chronic Assessment and Plan: Chronic in nature with resulting severe dysphagia and impaired communication. RUE contracture, RLE extreme weakness Fall precautions (3) HLD (hyperlipidemia): Code(s): E78.5 - Hyperlipidemia, unspecified Status: Chronic Assessment and Plan: Re-order once pt is taking po meds and once meds are verified and confirmed. (4) Depression: Code(s): F32.A - Depression, unspecified Status: Chronic Assessment and Plan: Re-order home meds once pt is taking po meds and his home meds are verified and confirmed. (5) Hypertension: Code(s): I10 - Essential (primary) hypertension Status: Chronic Assessment and Plan: Pt is not taking any po meds at this time. PRN hydralazine is ordered with parameters to give for SBP>180 and DBP>90. Quality VTE Prophylaxis VTE prophylaxis: mechanical ordered Hospitalist [facility] Advance Care Plan I have confirmed that the patient's Advanced Care Plan is present, code status is documented, or surrogate decision maker is listed in patient medical record.: Yes Medication Reconciliation I have utilized all available resources to obtain, update and review the patients current medications (includes all prescriptions, OTC, herbals, cannabis, and nutritional supplements).: Yes
[2025-05-11] MEDS: LACTATED RINGERS 1,000 ML 125 ML IV CONT (21:30)
[2025-05-11] MEDS: LORazepam INJ (*CRX) 2 MG/ML VIAL 1 MG IV PUSH (23:01)
[2025-05-12] VITALS (10 sets, daily range): BP systolic 98–125; BP diastolic 60–64; PULSE 50–69; RESP 16–20; TEMP 36.5–37.5; O2SAT 92–94
--- NOTE | 2025-05-12 02:11 | ADMGEN ---
This patient, Chiki Joel, was admitted to [facility] Surg Room 307-01. Patient/family oriented to hospital policies and general routines including ID bracelet, bed and alarms, visiting hours, pain management, procedures, bathroom and other care routines, personal items, smoking policy, room service/diet, and visiting hours. Information on how to activate the Rapid Response Team has been discussed. Patient/Family are encouraged to report perceived risks to care and to ask questions if they do not understand what they are told or what they should do.
--- NOTE | 2025-05-12 02:13 | PC.NURSE ---
On 05/12/25, TAL Wilburn, provided care and completed [employer] documentation on this patient with this nurse available for assistance. I have reviewed Cosmo's documentation and agree with the findings.
[2025-05-12] MEDS: LACTATED RINGERS 1,000 ML 125 ML IV CONT ×3 (02:55→22:44)
[2025-05-12 05:47] LABS: Hematocrit 32.6 % (42.0-52.0); Hemoglobin 10.3 g/dL (14.0-18.0); Immature Granulocyte Percent A 0.4 % (0-0.5); Lymphocytes Absolute Auto 2.01 K/mm3 (0.9-3.2); Mean Corpuscular HGB Conc 31.6 g/dl (32-36); Mean Corpuscular Hemoglobin 29.2 pg (26-34); Mean Corpuscular Volume 92.4 fl (80-100); Nucleated Red Blood Cells Absolute Auto 0.000 K/mm3 (0.0-0.012); Nucleated Red Blood Cells Perc 0.0 % (0.0-0.2); Platelet Count Result 144 k/mm3 (150-375); Red Blood Count 3.53 M/mm3 (4.6-6.20); White Blood Count 8.1 K/mm3 (4.5-10.0)
[2025-05-12 06:01] LABS: Alanine Aminotransferase 15 U/L (6-50); Albumin Level 3.2 g/dL (3.5-5.1); Alkaline Phosphatase 46 U/L (38-126); Anion Gap 7 mmol/L (4-12); Aspartate Amino Transferase 22 U/L (17-59); Bilirubin,Total 0.4 mg/dL (0.2-1.3); Blood Urea Nitrogen 17 mg/dL (9-20); Calcium 8.2 mg/dL (8.4-10.2); Carbon Dioxide 25 mmol/L (22-30); Chloride 112 mmol/L (98-107); Estimated Glomerular Filt Rate > 60; Glucose 93 mg/dL (65-110); Potassium 3.7 mmol/L (3.4-5.0); Sodium 144 mmol/L (137-145); Total Protein 6.3 g/dL (6.3-8.2)
[2025-05-12 06:03] LABS: INR 1.1; Prothrombin Time 14.5 Seconds (11.1-14.7)
[2025-05-12 06:04] LABS: Partial Thromboplastin Time 31.4 Seconds (22.3-36.8)
--- NOTE | 2025-05-12 06:55 | WPDGICN ---
Assessment and Plan Assessment and plan (1) Coffee ground emesis: Code(s): K92.0 - Hematemesis Status: Acute Assessment and Plan: Based on the current history, stable hemodynamic parameters, hemoglobin trend, and clear gastric lavage, the patient does not show evidence of active gastrointestinal bleeding. the initial Hb might be a lab error (7.6). It's possible he experienced a self-limited, small amount of mucosal bleeding, such as from erosive esophagitis or gastritis. To gain a better diagnostis , we will perform an EGD this afternoon. If no life-threatening source of GI bleeding is identified during the procedure (i.e ulcer with active or recent bleeding stigmata) the patient will be discharged back home. The NG tube will be removed this morning. GI Consult Note Consult date/time: 05/12/25 06:55 Reason for consult: ? Coffee-ground emesis HPI: Chiki Joel is a 64-year-old male with a history of CVA and severe dysphagia, transferred from a [facility] yesterday following a report of small amounts of brown emesis. In the ER, an NG tube was placed, yielding 10 mL of coffee-ground material. There were no further emesis episodes and no melena. Admission hemoglobin was 7.6 , which improved to 12.4 on repeat, without any blood transfusions. This morning, his hemoglobin is 10.3 , and he has remained hemodynamically stable overnight. Other labs, including electrolytes, AST, ALT, and albumin, are within normal limits. The patient is nonverbal, somewhat disoriented, and unable to follow commands. A bedside gastric lavage performed this morning via the NG tube yielded only clear liquid, with no signs of active bleeding. Review of Systems Review of Systems: All systems reviewed & are unremarkable except as noted in HPI and below [facility] Past Medical History Medical History (Updated 05/11/25 @ 19:54 by LILLIAM Villa) HLD (hyperlipidemia) Depression Hypertension CVA (cerebral vascular accident) Social History Social History Smoking status: Unknown if ever smoked Alcohol intake: former Substance use: unknown Substance use type: unknown Spiritual care concerns: No (Unable to assess) Meds Home Medications and Allergies Home Medications ?Medication ?Instructions ?Recorded ?Confirmed ?Type baclofen 10 mg tablet 10 mg PO TID 05/11/25 05/11/25 History buspirone 15 mg tablet 15 mg PO TID 05/11/25 05/11/25 History divalproex 250 mg tablet,delayed 500 mg PO BID 05/11/25 05/11/25 History release lorazepam 0.5 mg tablet 0.5 mg PO BID 05/11/25 05/11/25 History losartan 25 mg tablet 25 mg PO DAILY 05/11/25 05/11/25 History olanzapine 5 mg tablet 5 mg PO TID 05/11/25 05/11/25 History aspirin 325 mg tablet 325 mg PO DAILY 05/12/25 05/12/25 History atorvastatin 80 mg tablet (Lipitor) 80 mg PO DAILY 05/12/25 05/12/25 History bupropion HCl 150 mg 24 hr tablet, 150 mg PO DAILY 05/12/25 05/12/25 History extended release (Wellbutrin XL) cyanocobalamin (vitamin B-12) 1,000 mcg PO DAILY 05/12/25 05/12/25 History 1,000 mcg capsule docusate sodium 250 mg capsule 500 mg PO DAILY 05/12/25 05/12/25 History loperamide 2 mg capsule 2 mg PO Q6H PRN loose stool 05/12/25 05/12/25 History (Anti-Diarrheal (loperamide)) omega 6-apx-czc-fish oil 1,000 mg 1 cap PO DAILY 05/12/25 05/12/25 History (120 mg-180 mg) capsule (Fish Oil) ondansetron HCl 4 mg tablet 4 mg PO Q6H PRN nausea and vomiting 05/12/25 05/12/25 History pantoprazole 40 mg tablet,delayed 40 mg PO DAILY 05/12/25 05/12/25 History release polyethylene glycol 3350 17 gram 17 g PO DAILY 05/12/25 05/12/25 History oral powder packet (Miralax) thiamine HCl (vitamin B1) 100 mg 100 mg PO DAILY 05/12/25 05/12/25 History capsule Allergies Allergy/AdvReac Type Severity Reaction Status Date / Time No Known Allergies Allergy Verified 05/11/25 15:31 Vital Signs Vital Signs - 24 hr 05/11/25 15:03 05/11/25 16:23 05/11/25 16:58 Temperature 97.8 F 98.0 F Pulse Rate 72 69 68 Respiratory Rate 17 16 17 Blood Pressure 111/99 H 133/85 130/79 Pulse Oximetry 99 99 95 Oxygen Delivery Room Air 05/11/25 18:21 05/11/25 18:54 05/12/25 00:00 Temperature Pulse Rate 71 73 62 Respiratory Rate 17 19 Blood Pressure 131/69 147/82 H Pulse Oximetry 97 98 Oxygen Delivery 05/12/25 04:00 Temperature Pulse Rate 69 Respiratory Rate Blood Pressure Pulse Oximetry Oxygen Delivery Exam Narrative: GENERAL: Chronically ill-appearing, well-nourished, and in no acute distress. HEAD: Normocephalic, atraumatic. EYES: PERRL and EOMI. ENT: Nares clear, no rhinorrhea or epistaxis. Mucous membranes moist. NECK: Supple. CHEST: Clear to auscultation. No respiratory distress. HEART: Regular rate and rhythm. Normal peripheral pulses. ABDOMEN: Soft, nontender, nondistended. Pale/andre-colored stool that is guaiac positive. No gross blood. EXTREMITIES: Right-sided contractures and weakness. SKIN: Warm, dry, no rash. NEURO: Awake alert, aphasic but shakes head yes or no. Results Labs 05/12/25 05:37 05/12/25 05:37 Labs: Short CBC 05/11/25 05/11/25 05/12/25 Range/Units 15:30 16:40 05:37 WBC 9.0 14.9 H 8.1 (4.5-10.0) K/mm3 Hgb 7.6 L 12.4 L D 10.3 L (14.0-18.0) g/dL Hct 24.9 L 39.6 L 32.6 L (42.0-52.0) % Plt Count 113 L 187 D 144 L (150-375) k/mm3 BMP 05/11/25 05/12/25 16:02 05:37 Sodium 149 H 144 Potassium 4.1 3.7 Chloride 112 H 112 H Carbon Dioxide 25 25 BUN 22 H 17 Creatinine 1.09 0.99 Glucose 101 93 Calcium 9.4 8.2 L Liver Function 05/11/25 05/12/25 Range/Units 16:02 05:37 Total Bilirubin 0.4 0.4 (0.2-1.3) mg/dL AST 33 22 (17-59) U/L ALT 22 15 (6-50) U/L Alkaline Phosphatase 63 46 (38-126) U/L Albumin 4.2 3.2 L (3.5-5.1) g/dL
[2025-05-12] MEDS: PANTOPRAZOLE SODIUM IV 40 MG VIAL IV PUSH ×2 (10:25→21:27)
--- NOTE | 2025-05-12 11:26 | SUR.PREOP ---
Per TAL Dan unable to obtain consent for EGD at this time. Updated Dr. Cortes in these regards. Per Dr. Cortes, cancel procedure for today.
[2025-05-12] MEDS: ATORVASTATIN 40 MG TABLET 80 MG PO (12:32)
[2025-05-12] MEDS: buPROPion HCL XL (24 HR) 150 MG TABCR PO (12:32)
[2025-05-12] MEDS: PANTOPRAZOLE 40 MG TABLET PO (12:33)
[2025-05-12] MEDS: LOSARTAN POTASSIUM 25 MG TABLET PO (12:33)
[2025-05-12] MEDS: OMEGA 3 POLYUNSAT FATTY ACIDS 1 GM CAP PO (12:33)
[2025-05-12] MEDS: CYANOCOBALAMIN 1,000 MCG TABLET 1000 MCG PO (12:33)
[2025-05-12] MEDS: LORazepam (*CRX) 0.5 MG TABLET PO ×2 (12:34→17:17)
[2025-05-12] MEDS: BACLOFEN 10 MG TABLET PO ×2 (12:34→17:17)
[2025-05-12] MEDS: THIAMINE HCL 100 MG TABLET PO (12:34)
[2025-05-12] MEDS: DIVALPROEX SODIUM DR 250 MG TABEC 500 MG PO ×2 (12:38→17:17)
--- NOTE | 2025-05-12 14:51 | P.PNIM_ITS ---
Progress Note: A&P Assessment and Plan (1) Coffee ground emesis: Code(s): K92.0 - Hematemesis Status: Acute Assessment and Plan: * New onset today * NG tube present to LWIS * Protonix 40 mg IVP Q12 hrs * Zofran 4 mg IVP PRN nausea * NPO * Consult GI * Trend labs and VS for hemodynamic instability * Hold any ASA or Anticoagulation. (2) History of stroke: Code(s): Z86.73 - Personal history of transient ischemic attack (TIA), and cerebral infarction without residual deficits Status: Chronic Assessment and Plan: * Chronic in nature with resulting severe dysphagia and impaired communication. * RUE contracture, RLE extreme weakness * Fall precautions (3) HLD (hyperlipidemia): Code(s): E78.5 - Hyperlipidemia, unspecified Status: Chronic Assessment and Plan: * Re-order once pt is taking po meds and once meds are verified and confirmed. (4) Depression: Code(s): F32.A - Depression, unspecified Status: Chronic Assessment and Plan: * Re-order home meds once pt is taking po meds and his home meds are verified and confirmed. (5) Hypertension: Code(s): I10 - Essential (primary) hypertension Status: Chronic Assessment and Plan: * Pt is not taking any po meds at this time. * PRN hydralazine is ordered with parameters to give for SBP>180 and DBP>90. Plan patient with history of alcohol abuse and poor historian unable to provider any ROS, patient was seen by GI and plan was to have EGD to further evaluate cause of coffee ground emesis. however patient is too confused and unable to give consent for the procedure and his POA is not responding, will cancel EGD, will continue to monitor. Subjective Date/time seen: 05/12/25 14:51 Interval history: Vomiting coffee ground emesis H&P-Narrative: This is a 64 year old male pt who resides at [facility] in [place] and has a hx of CVA, with right sided contracture/flaccidity, severe dysphagia, HTN, Depression, HLD and Anxiety who is brought to the ER for complaints of having an episode of emesis today that appeared to have coffee ground appearance. Pt is not able to communicate any acute symptoms, and can only nod yes and no. Even with that, it is not evident how much the pt truly understands of the conversation. In the ER an NG tube was placed with return of approximately 10 ml of coffee ground emesis. VSS, and labs notable for Sodium of 149, and WBC's of 14.9. CT abd and pelvis with contrast showing no acute diverticulitis, appendicitis or other acute abdomen, but there are findings of cholelithiasis, bilateral femoral head AVN, a right undescended testicle and a hypodensity in the left kidney with etiology considered being a mass or focal infection. He has received IV Protonix, LR and zofran. He has a noted normal H&H of 12.4/39.6. EMR was reviewed and shows a hx of ETOH abuse in his past. Suspect this may be a potential PUD. He is being admitted for GI evaluation and further management. patient with history of alcohol abuse and poor historian unable to provider any ROS, patient was seen by GI and plan was to have EGD to further evaluate cause of coffee ground emesis. however patient is too confused and unable to give consent for the procedure and his POA is not responding, will cancel EGD, will continue to monitor. Review of Systems Review of Systems: ROS unobtainable: Yes unobtainable due to medical condition (Severely dysphagic) Objective Data Vital Signs Vital Signs: Vital Signs - 24 hr 05/11/25 15:03 05/11/25 16:23 05/11/25 16:58 Temperature 36.6 C 36.7 C Pulse Rate 72 69 68 Respiratory Rate 17 16 17 Blood Pressure 111/99 H 133/85 130/79 Pulse Oximetry 99 99 95 Oxygen Delivery Room Air 05/11/25 18:21 05/11/25 18:54 05/12/25 00:00 Temperature Pulse Rate 71 73 62 Respiratory Rate 17 19 Blood Pressure 131/69 147/82 H Pulse Oximetry 97 98 Oxygen Delivery 05/12/25 04:00 05/12/25 06:00 05/12/25 08:00 Temperature 36.8 C Pulse Rate 69 56 L 57 L Respiratory Rate 20 Blood Pressure 125/61 Pulse Oximetry 92 Oxygen Delivery 05/12/25 12:00 Temperature Pulse Rate 54 L Respiratory Rate Blood Pressure Pulse Oximetry Oxygen Delivery Intake/Output Intake/Output: Intake & Output 06/30/05/10/25 05/11/25 05/12/25 23:59 23:59 23:59 23:59 Intake Total 1000 1677.1 Output Total 350 Balance 650 1677.1 Meds/Results Medications: Active Medications Generic Name Dose Route Start Last Admin Trade Name Rian PRN Reason Stop Dose Admin Atorvastatin Calcium 80 mg 05/12/25 09:00 05/12/25 12:32 Atorvastatin 40 Mg Tablet PO 80 mg DAILY RAULITO Administration Baclofen 10 mg 05/12/25 09:00 05/12/25 14:41 Baclofen 10 Mg Tablet PO Not Given TID RAULITO Bupropion HCl 150 mg 05/12/25 09:00 05/12/25 12:32 Bupropion Hcl Xl (24 Hr) 150 Mg Tabcr PO 150 mg DAILY RAULITO Administration Buspirone HCl 15 mg 05/12/25 09:00 05/12/25 14:42 Buspirone Hcl 5 Mg Tablet PO Not Given TID RAULITO Cyanocobalamin 1,000 mcg 05/12/25 09:00 05/12/25 12:33 Cyanocobalamin 1,000 Mcg Tablet PO 1,000 mcg DAILY RAULITO Administration Divalproex Sodium 500 mg 05/12/25 09:00 05/12/25 12:[address] 250 Mg Tabec PO 500 mg BID RAULITO Administration Docusate Sodium 100 mg 05/12/25 17:00 Docusate Sodium 100 Mg Capsule PO BID RAULITO Fish Oil 1 gm 05/12/25 10:00 05/12/25 12:33 [place] 3 Polyunsat Fatty Acids 1 Gm Cap PO 1 gm DAILY RAULITO Administration Hydralazine HCl 10 mg 05/11/25 19:56 Hydralazine Hcl 20 Mg/Ml Vial IV PUSH Q8H PRN Blood Pressure - High Lactated Ringer's 1,000 mls @ 125 mls/hr 05/11/25 19:05 05/12/25 12:34 Lr - Lactated Ringers Iv IV CONT 125 mls/hr .Q8H RAULITO Administration Loperamide HCl 2 mg 05/12/25 08:13 Loperamide Hcl 2 Mg Capsule PO Q6H PRN loose stool Lorazepam 0.5 mg 05/12/25 09:00 05/12/25 12:34 Lorazepam (*Crx) 0.5 Mg Tablet PO 0.5 mg BID RAULITO Administration Losartan Potassium 25 mg 05/12/25 09:00 05/12/25 12:33 Losartan Potassium 25 Mg Tablet PO 25 mg DAILY RAULITO Administration Olanzapine 5 mg 05/12/25 09:00 05/12/25 14:42 Olanzapine 5 Mg Tablet PO Not Given TID RAULITO Ondansetron HCl 4 mg 05/12/25 08:13 Ondansetron Hcl Odt 4 Mg Tablet PO Q6H PRN nausea and vomiting Pantoprazole Sodium 40 mg 05/12/25 09:00 05/12/25 10:25 Pantoprazole Sodium Iv 40 Mg Vial IV PUSH 40 mg Q12HR RAULITO Administration Pantoprazole Sodium 40 mg 05/12/25 09:00 05/12/25 12:33 Pantoprazole 40 Mg Tablet PO 40 mg DAILY RAULITO Administration Polyethylene Glycol 17 gm 05/12/25 09:00 05/12/25 12:31 Polyethylene Glycol 3350 17 Gm Powd.Pack PO 17 gm DAILY RAULITO Administration Thiamine HCl 100 mg 05/12/25 10:00 05/12/25 12:34 Thiamine Hcl 100 Mg Tablet PO 100 mg QAM RAULITO Administration Radiology Results: ITS Impressions Abdomen/Pelvis CT 05/11/25 18:28 IMPRESSION: 1. No evidence of appendicitis, diverticulitis or intestinal obstruction. 2. Cholelithiasis. 3. Hypodensity in the left kidney midpole which may be a mass or focal infection. Follow-up advised. 4. Bilateral femoral head AVN. 5. Right inguinal undescended or retractile right testicle. Labs Labs: Laboratory Results - last 24 hr 05/11/25 05/11/25 05/11/25 15:30 15:58 16:02 WBC 9.0 RBC 2.62 L Hgb 7.6 L Hct 24.9 L MCV 95.0 MCH 29.0 MCHC 30.5 L RDW 15.0 H Plt Count 113 L MPV 10.4 Immature Gran % (Auto) 0.6 H Neut % (Auto) 78.5 H Lymph % (Auto) 11.1 L [place] % (Auto) 9.1 H Eos % (Auto) 0.4 Baso % (Auto) 0.3 Lymph # (Auto) 1.00 [place] # (Auto) 0.8 H Eos # (Auto) 0.0 Baso # (Auto) 0.0 Abs Immat Gran (auto) 0.05 H Absolute Neuts (auto) 7.1 H Absolute Nucleated RBC 0.000 Nucleated RBC % 0.0 PT 14.6 INR 1.1 APTT 28.5 Sodium 149 H Potassium 4.1 Chloride 112 H Carbon Dioxide 25 Anion Gap 12 BUN 22 H Creatinine 1.09 Estim Creat Clear Calc Not Reportable Estimated GFR > 60 Glucose 101 POC Capillary Glucose 108 H Calcium 9.4 Total Bilirubin 0.4 AST 33 ALT 22 Alkaline Phosphatase 63 Total Protein 8.0 Albumin 4.2 Lipase 74 05/11/25 05/12/25 16:40 05:37 WBC 14.9 H 8.1 RBC 4.27 L 3.53 L Hgb 12.4 L D 10.3 L Hct 39.6 L 32.6 L MCV 92.7 92.4 MCH 29.0 29.2 MCHC 31.3 L 31.6 L RDW 15.2 H 15.1 H Plt Count 187 D 144 L MPV 10.4 10.1 Immature Gran % (Auto) 0.3 0.4 Neut % (Auto) 75.4 H 61.5 Lymph % (Auto) 14.0 L 24.8 [place] % (Auto) 9.5 H 10.5 H Eos % (Auto) 0.5 2.3 Baso % (Auto) 0.3 0.5 Lymph # (Auto) 2.09 2.01 [place] # (Auto) 1.4 H 0.9 H Eos # (Auto) 0.1 0.2 Baso # (Auto) 0.1 0.0 Abs Immat Gran (auto) 0.05 H 0.03 Absolute Neuts (auto) 11.2 H 5.0 Absolute Nucleated RBC 0.000 0.000 Nucleated RBC % 0.0 0.0 PT 14.5 INR 1.1 APTT 31.4 Sodium 144 Potassium 3.7 Chloride 112 H Carbon Dioxide 25 Anion Gap 7 BUN 17 Creatinine 0.99 Estim Creat Clear Calc Not Reportable Estimated GFR > 60 Glucose 93 POC Capillary Glucose Calcium 8.2 L Total Bilirubin 0.4 AST 22 ALT 15 Alkaline Phosphatase 46 Total Protein 6.3 Albumin 3.2 L Lipase Quality VTE Prophylaxis VTE prophylaxis: mechanical ordered
[2025-05-12] MEDS: DOCUSATE SODIUM 100 MG CAPSULE PO (17:19)
--- NOTE | 2025-05-12 18:30 | PC.NURSE ---
Pt had been NPO for possible EGD. Pt [facility] is her contact. Chart updated with [facility] info. Multiple calls made to [facility], but no call returned. Notified GI who was holding a spot for her EGD and informed them he had no further emesis. Sebastian calling off EGD and permitting diet. Notified Espinoza. Gave pt meds. He was coughing with pills and water. Called facility to check diet consistency and pill taking habits. Pt normally thins and regular diet. Pt kept NPO and ordered MBS. MBS unable to be performed due to no radiologist until 05/14. Notified MD who permitted pt to try eating. Pt ordered heart healthy, soft and bite size with thins. This RN fed dinner with pt upright. Pt does better when RN on his right side and putting food to his left oral pocket. No coughing at this time. MD notified and pt MBS cancelled.
[2025-05-13] VITALS (9 sets, daily range): BP systolic 96–137; BP diastolic 50–75; PULSE 44–59; RESP 14–16; TEMP 36.4–37.3; O2SAT 94–100
[2025-05-13 06:16] LABS: Hematocrit 31.9 % (42.0-52.0); Hemoglobin 9.9 g/dL (14.0-18.0); Mean Corpuscular HGB Conc 31.0 g/dl (32-36); Mean Corpuscular Hemoglobin 28.9 pg (26-34); Mean Corpuscular Volume 93.0 fl (80-100); Platelet Count Result 135 k/mm3 (150-375); Red Blood Count 3.43 M/mm3 (4.6-6.20); White Blood Count 7.2 K/mm3 (4.5-10.0)
[2025-05-13] MEDS: LACTATED RINGERS 1,000 ML 125 ML IV CONT (06:38)
[2025-05-13 06:43] LABS: Anion Gap 3 mmol/L (4-12); Blood Urea Nitrogen 15 mg/dL (9-20); Calcium 8.4 mg/dL (8.4-10.2); Carbon Dioxide 29 mmol/L (22-30); Chloride 109 mmol/L (98-107); Estimated Glomerular Filt Rate 60; Glucose 83 mg/dL (65-110); Magnesium 1.7 mg/dL (1.6-2.3); Potassium 4.1 mmol/L (3.4-5.0); Sodium 141 mmol/L (137-145)
[2025-05-13] MEDS: BACLOFEN 10 MG TABLET PO ×3 (09:14→16:02)
[2025-05-13] MEDS: LORazepam (*CRX) 0.5 MG TABLET PO ×2 (09:16→16:06)
[2025-05-13] MEDS: CYANOCOBALAMIN 1,000 MCG TABLET 1000 MCG PO (09:16)
[2025-05-13] MEDS: DOCUSATE SODIUM 100 MG CAPSULE PO ×2 (09:18→16:03)
[2025-05-13] MEDS: OMEGA 3 POLYUNSAT FATTY ACIDS 1 GM CAP PO (09:19)
[2025-05-13] MEDS: buPROPion HCL XL (24 HR) 150 MG TABCR PO (09:21)
[2025-05-13] MEDS: DIVALPROEX SODIUM DR 250 MG TABEC 500 MG PO ×2 (09:23→16:06)
[2025-05-13] MEDS: ATORVASTATIN 40 MG TABLET 80 MG PO (09:24)
[2025-05-13] MEDS: LOSARTAN POTASSIUM 25 MG TABLET PO (09:24)
[2025-05-13] MEDS: PANTOPRAZOLE 40 MG TABLET PO (09:25)
[2025-05-13] MEDS: THIAMINE HCL 100 MG TABLET PO (09:25)
--- NOTE | 2025-05-13 12:15 | PCNFU ---
Nutrition Follow-Up Complete: Inadequate energy intake related to NPO status as evidenced by current diet orders Goal:Meet estimated needs Pt meeting goal Pt current nutrition is Heart healthy, soft and bite sized level 6. Nutrition recommendation: continue with current plan of care Last recorded weight is 82.1 kg. Bowel Motility:+BM / Labs Reviewed: Hgb:9.9, HCT:31.9 Meds Noted: protonix, miralax, MVI, thiamin Skin: WNL Additional Notes: pt diet advanced to heart healthy, soft and bite sized level 6, intake good at 75-100% of meals. Agree with orders. Monitor diet orders, intake, wt, labs. Follow up in 7 days
--- NOTE | 2025-05-13 14:10 | P.PNIM_ITS ---
Progress Note: A&P Assessment and Plan (1) Coffee ground emesis: Code(s): K92.0 - Hematemesis Status: Acute Assessment and Plan: * New onset today * NG tube present to LWIS * Protonix 40 mg IVP Q12 hrs * Zofran 4 mg IVP PRN nausea * NPO * Consult GI * Trend labs and VS for hemodynamic instability * Hold any ASA or Anticoagulation. (2) History of stroke: Code(s): Z86.73 - Personal history of transient ischemic attack (TIA), and cerebral infarction without residual deficits Status: Chronic Assessment and Plan: * Chronic in nature with resulting severe dysphagia and impaired communication. * RUE contracture, RLE extreme weakness * Fall precautions (3) HLD (hyperlipidemia): Code(s): E78.5 - Hyperlipidemia, unspecified Status: Chronic Assessment and Plan: * Re-order once pt is taking po meds and once meds are verified and confirmed. (4) Depression: Code(s): F32.A - Depression, unspecified Status: Chronic Assessment and Plan: * Re-order home meds once pt is taking po meds and his home meds are verified and confirmed. (5) Hypertension: Code(s): I10 - Essential (primary) hypertension Status: Chronic Assessment and Plan: * Pt is not taking any po meds at this time. * PRN hydralazine is ordered with parameters to give for SBP>180 and DBP>90. Plan patient with history of alcohol abuse and poor historian unable to provider any ROS, patient was seen by GI and plan was to have EGD to further evaluate to find cause of coffee ground emesis. however patient is too confused and unable to give consent for the procedure and his POA was not responding, however patient did have EGD at [facility], showed erosive esophagitis, able to take his diet, will have PT/OT evaluate the patient, will continue to monitor. Subjective Date/time seen: 05/13/25 14:10 Interval history: Vomiting coffee ground emesis H&P-Narrative: This is a 64 year old male pt who resides at [facility] in [place] and has a hx of CVA, with right sided contracture/flaccidity, severe dysphagia, HTN, Depression, HLD and Anxiety who is brought to the ER for complaints of having an episode of emesis today that appeared to have coffee ground appearance. Pt is not able to communicate any acute symptoms, and can only nod yes and no. Even with that, it is not evident how much the pt truly understands of the conversation. In the ER an NG tube was placed with return of approximately 10 ml of coffee ground emesis. VSS, and labs notable for Sodium of 149, and WBC's of 14.9. CT abd and pelvis with contrast showing no acute diverticulitis, appendicitis or other acute abdomen, but there are findings of cholelithiasis, bilateral femoral head AVN, a right undescended testicle and a hypodensity in the left kidney with etiology considered being a mass or focal infection. He has received IV Protonix, LR and zofran. He has a noted normal H&H of 12.4/39.6. EMR was reviewed and shows a hx of ETOH abuse in his past. Suspect this may be a potential PUD. He is being admitted for GI evaluation and further management. patient with history of alcohol abuse and poor historian unable to provider any ROS, patient was seen by GI and plan was to have EGD to further evaluate to find cause of coffee ground emesis. however patient is too confused and unable to give consent for the procedure and his POA was not responding, however patient did have EGD at [facility], showed erosive esophagitis, able to take his diet, will have PT/OT evaluate the patient, will continue to monitor. Review of Systems Review of Systems: ROS unobtainable: Yes unobtainable due to medical condition (Severely dysphagic) Objective Data Vital Signs Vital Signs: Vital Signs - 24 hr 05/12/25 16:00 05/12/25 20:00 05/12/25 20:00 Temperature Pulse Rate 50 L 59 L Respiratory Rate Blood Pressure Pulse Oximetry Oxygen Delivery Room Air 05/12/25 20:47 05/12/25 21:16 05/13/25 00:00 Temperature 37.5 C Pulse Rate 57 L 56 L Respiratory Rate 16 Blood Pressure 110/64 Pulse Oximetry 93 93 Oxygen Delivery Room Air 05/13/25 04:00 05/13/25 05:58 05/13/25 08:00 Temperature 37.3 C Pulse Rate 49 L 51 L Respiratory Rate 16 Blood Pressure 96/75 L Pulse Oximetry 94 Oxygen Delivery Room Air 05/13/25 08:00 05/13/25 08:22 05/13/25 12:00 Temperature Pulse Rate 44 L 50 L 53 L Respiratory Rate Blood Pressure 137/58 L Pulse Oximetry Oxygen Delivery Intake/Output Intake/Output: Intake & Output 05/10/25 05/11/25 05/12/25 05/13/25 23:59 23:59 23:59 23:59 Intake Total 1000 2917.1 1461.5 Output Total 350 Balance 650 2917.1 1461.5 Meds/Results Medications: Active Medications Generic Name Dose Route Start Last Admin Trade Name Freq PRN Reason Stop Dose Admin Atorvastatin Calcium 80 mg 05/12/25 09:00 05/13/25 09:24 Atorvastatin 40 Mg Tablet PO 80 mg DAILY RAULITO Administration Baclofen 10 mg 05/12/25 09:00 05/13/25 12:24 Baclofen 10 Mg Tablet PO 10 mg TID RAULITO Administration Bupropion HCl 150 mg 05/12/25 09:00 05/13/25 09:21 Bupropion Hcl Xl (24 Hr) 150 Mg Tabcr PO 150 mg DAILY RAULITO Administration Buspirone HCl 15 mg 05/12/25 09:00 05/13/25 12:23 Buspirone Hcl 5 Mg Tablet PO 15 mg TID RAULITO Administration Cyanocobalamin 1,000 mcg 05/12/25 09:00 05/13/25 09:16 Cyanocobalamin 1,000 Mcg Tablet PO 1,000 mcg DAILY RAULITO Administration Divalproex Sodium 500 mg 05/12/25 09:00 05/13/25 09:[address] 250 Mg Tabec PO 500 mg BID RAULITO Administration Docusate Sodium 100 mg 05/12/25 17:00 05/13/25 09:18 Docusate Sodium 100 Mg Capsule PO 100 mg BID RAULITO Administration Fish Oil 1 gm 05/12/25 10:00 05/13/25 09:19 [place] 3 Polyunsat Fatty Acids 1 Gm Cap PO 1 gm DAILY RAULITO Administration Hydralazine HCl 10 mg 05/11/25 19:56 Hydralazine Hcl 20 Mg/Ml Vial IV PUSH Q8H PRN Blood Pressure - High Loperamide HCl 2 mg 05/12/25 08:13 Loperamide Hcl 2 Mg Capsule PO Q6H PRN loose stool Lorazepam 0.5 mg 05/12/25 09:00 05/13/25 09:16 Lorazepam (*Crx) 0.5 Mg Tablet PO 0.5 mg BID RAULITO Administration Losartan Potassium 25 mg 05/12/25 09:00 05/13/25 09:24 Losartan Potassium 25 Mg Tablet PO 25 mg DAILY RAULITO Administration Olanzapine 5 mg 05/12/25 09:00 05/13/25 12:23 Olanzapine 5 Mg Tablet PO 5 mg TID RAULITO Administration Ondansetron HCl 4 mg 05/12/25 08:13 Ondansetron Hcl Odt 4 Mg Tablet PO Q6H PRN nausea and vomiting Pantoprazole Sodium 40 mg 05/12/25 09:00 05/13/25 09:25 Pantoprazole 40 Mg Tablet PO 40 mg DAILY RAULITO Administration Polyethylene Glycol 17 gm 05/12/25 09:00 05/13/25 09:13 Polyethylene Glycol 3350 17 Gm Powd.Pack PO Not Given DAILY RAULITO Thiamine HCl 100 mg 05/12/25 10:00 05/13/25 09:25 Thiamine Hcl 100 Mg Tablet PO 100 mg QAM RAULITO Administration Radiology Results: ITS Impressions Abdomen/Pelvis CT 05/11/25 18:28 IMPRESSION: 1. No evidence of appendicitis, diverticulitis or intestinal obstruction. 2. Cholelithiasis. 3. Hypodensity in the left kidney midpole which may be a mass or focal infection. Follow-up advised. 4. Bilateral femoral head AVN. 5. Right inguinal undescended or retractile right testicle. Labs Labs: Laboratory Results - last 24 hr 05/13/25 05:33 WBC 7.2 RBC 3.43 L Hgb 9.9 L Hct 31.9 L MCV 93.0 MCH 28.9 MCHC 31.0 L RDW 14.6 H Plt Count 135 L MPV 10.9 H Sodium 141 Potassium 4.1 Chloride 109 H Carbon Dioxide 29 Anion Gap 3 L BUN 15 Creatinine 1.22 Estim Creat Clear Calc Not Reportable Estimated GFR 60 Glucose 83 Calcium 8.4 Magnesium 1.7 Quality VTE Prophylaxis VTE prophylaxis: mechanical ordered
[2025-05-14] VITALS (9 sets, daily range): BP systolic 115–135; BP diastolic 61–72; PULSE 47–88; RESP 14–18; TEMP 36.4–37.7; O2SAT 96–99
[2025-05-14 06:10] LABS: Hematocrit 34.9 % (42.0-52.0); Hemoglobin 11.1 g/dL (14.0-18.0); Mean Corpuscular HGB Conc 31.8 g/dl (32-36); Mean Corpuscular Hemoglobin 29.2 pg (26-34); Mean Corpuscular Volume 91.8 fl (80-100); Platelet Count Result 144 k/mm3 (150-375); Red Blood Count 3.80 M/mm3 (4.6-6.20); White Blood Count 7.5 K/mm3 (4.5-10.0)
[2025-05-14 06:26] LABS: Anion Gap 8 mmol/L (4-12); Blood Urea Nitrogen 15 mg/dL (9-20); Calcium 8.6 mg/dL (8.4-10.2); Carbon Dioxide 24 mmol/L (22-30); Chloride 110 mmol/L (98-107); Estimated Glomerular Filt Rate > 60; Glucose 86 mg/dL (65-110); Magnesium 1.9 mg/dL (1.6-2.3); Potassium 4.0 mmol/L (3.4-5.0); Sodium 142 mmol/L (137-145)
[2025-05-14] MEDS: THIAMINE HCL 100 MG TABLET PO (09:54)
[2025-05-14] MEDS: ATORVASTATIN 40 MG TABLET 80 MG PO (09:54)
[2025-05-14] MEDS: CYANOCOBALAMIN 1,000 MCG TABLET 1000 MCG PO (09:54)
[2025-05-14] MEDS: LOSARTAN POTASSIUM 25 MG TABLET PO (09:54)
[2025-05-14] MEDS: buPROPion HCL XL (24 HR) 150 MG TABCR PO (09:54)
[2025-05-14] MEDS: BACLOFEN 10 MG TABLET PO ×3 (09:54→18:02)
[2025-05-14] MEDS: PANTOPRAZOLE 40 MG TABLET PO (09:55)
--- NOTE | 2025-05-14 11:18 | PCSTNOTE ---
Cannot complete MBS due to no on-site radiologist this date. Dr. Doran aware and allowed Bedside Swallow Evaluation.
--- NOTE | 2025-05-14 11:50 | P.PNIM_ITS ---
Progress Note: A&P Assessment and Plan (1) Coffee ground emesis: Code(s): K92.0 - Hematemesis Status: Acute Assessment and Plan: * New onset today * NG tube present to LWIS * Protonix 40 mg IVP Q12 hrs * Zofran 4 mg IVP PRN nausea * NPO * Consult GI * Trend labs and VS for hemodynamic instability * Hold any ASA or Anticoagulation. (2) History of stroke: Code(s): Z86.73 - Personal history of transient ischemic attack (TIA), and cerebral infarction without residual deficits Status: Chronic Assessment and Plan: * Chronic in nature with resulting severe dysphagia and impaired communication. * RUE contracture, RLE extreme weakness * Fall precautions (3) HLD (hyperlipidemia): Code(s): E78.5 - Hyperlipidemia, unspecified Status: Chronic Assessment and Plan: * Re-order once pt is taking po meds and once meds are verified and confirmed. (4) Depression: Code(s): F32.A - Depression, unspecified Status: Chronic Assessment and Plan: * Re-order home meds once pt is taking po meds and his home meds are verified and confirmed. (5) Hypertension: Code(s): I10 - Essential (primary) hypertension Status: Chronic Assessment and Plan: * Pt is not taking any po meds at this time. * PRN hydralazine is ordered with parameters to give for SBP>180 and DBP>90. Plan patient with history of alcohol abuse and poor historian unable to provider any ROS, patient was seen by GI and plan was to have EGD to further evaluate to find cause of coffee ground emesis. however patient is too confused and unable to give consent for the procedure and his POA was not responding, however patient did have EGD at [facility], showed erosive esophagitis, patient has not had any emesis while in the hospital, patient was seen by speech therapy and observed patient had difficulty swallowing and coughing, will have swallow study and further recommendation to follow, will have PT/OT evaluate the patient. Subjective Date/time seen: 05/14/25 11:50 Interval history: Vomiting coffee ground emesis H&P-Narrative: This is a 64 year old male pt who resides at [facility] in [place] and has a hx of CVA, with right sided contracture/flaccidity, severe dysphagia, HTN, Depression, HLD and Anxiety who is brought to the ER for complaints of having an episode of emesis today that appeared to have coffee ground appearance. Pt is not able to communicate any acute symptoms, and can only nod yes and no. Even with that, it is not evident how much the pt truly understands of the conversation. In the ER an NG tube was placed with return of approximately 10 ml of coffee ground emesis. VSS, and labs notable for Sodium of 149, and WBC's of 14.9. CT abd and pelvis with contrast showing no acute diverticulitis, appendicitis or other acute abdomen, but there are findings of cholelithiasis, bilateral femoral head AVN, a right undescended testicle and a hypodensity in the left kidney with etiology considered being a mass or focal infection. He has received IV Protonix, LR and zofran. He has a noted normal H&H of 12.4/39.6. EMR was reviewed and shows a hx of ETOH abuse in his past. Suspect this may be a potential PUD. He is being admitted for GI evaluation and further management. patient with history of alcohol abuse and poor historian unable to provider any ROS, patient was seen by GI and plan was to have EGD to further evaluate to find cause of coffee ground emesis. however patient is too confused and unable to give consent for the procedure and his POA was not responding, however patient did have EGD at [facility], showed erosive esophagitis, patient has not had any emesis while in the hospital, patient was seen by speech therapy and observed patient had difficulty swallowing and coughing, will have swallow study and further recommendation to follow, will have PT/OT evaluate the patient. Exam Narrative: Patient is comfortable, NAD HEENT: eyes are clear and none icteric LUNGS:CTA HEART: RR S1S2 ABD: BS+, Soft and nontender Lower extremities: no edema SKIN: nonjaundiced Neuro: grossly intact. Objective Data Vital Signs Vital Signs: Vital Signs - 24 hr 05/13/25 12:00 05/13/25 14:00 05/13/25 16:00 Temperature 36.4 C Pulse Rate 53 L 46 L 57 L Respiratory Rate 14 Blood Pressure 121/70 Pulse Oximetry 100 Oxygen Delivery 05/13/25 20:43 05/13/25 21:35 05/14/25 00:00 Temperature 36.4 C L Pulse Rate 59 L 51 L Respiratory Rate 16 Blood Pressure 117/50 L Pulse Oximetry 97 Oxygen Delivery Room Air 05/14/25 04:00 05/14/25 06:00 Temperature 37.7 C H Pulse Rate 50 L 88 Respiratory Rate 16 Blood Pressure 135/72 Pulse Oximetry 97 Oxygen Delivery Intake/Output Intake/Output: Intake & Output 05/11/25 05/12/25 05/13/25 05/14/25 23:59 23:59 23:59 23:59 Intake Total 1000 2917.1 1561.5 Output Total 350 Balance 650 2917.1 1561.5 Meds/Results Medications: Active Medications Generic Name Dose Route Start Last Admin Trade Name Freq PRN Reason Stop Dose Admin Atorvastatin Calcium 80 mg 05/12/25 09:00 05/14/25 09:54 Atorvastatin 40 Mg Tablet PO 80 mg DAILY RAULITO Administration Baclofen 10 mg 05/12/25 09:00 05/14/25 09:54 Baclofen 10 Mg Tablet PO 10 mg TID RAULITO Administration Bupropion HCl 150 mg 05/12/25 09:00 05/14/25 09:54 Bupropion Hcl Xl (24 Hr) 150 Mg Tabcr PO 150 mg DAILY RAULITO Administration Buspirone HCl 15 mg 05/12/25 09:00 05/14/25 09:54 Buspirone Hcl 5 Mg Tablet PO 15 mg TID RAULITO Administration Cyanocobalamin 1,000 mcg 05/12/25 09:00 05/14/25 09:54 Cyanocobalamin 1,000 Mcg Tablet PO 1,000 mcg DAILY RAULITO Administration Divalproex Sodium 500 mg 05/14/25 09:00 Divalproex Sodium Sprinkle 125 Mg Cap. PO Q12HR RAULITO Docusate Sodium 100 mg 05/14/25 09:00 Docusate Sodium Liq 100 Mg/10 Ml Udc PO BID RAULITO Fish Oil 1 gm 05/12/25 10:00 05/14/25 10:21 [place] 3 Polyunsat Fatty Acids 1 Gm Cap PO Not Given DAILY RAULITO Hydralazine HCl 10 mg 05/11/25 19:56 Hydralazine Hcl 20 Mg/Ml Vial IV PUSH Q8H PRN Blood Pressure - High Lansoprazole 30 mg 05/15/25 09:00 Lansoprazole Odt 30 Mg Tab.Rap.Dr PO DAILY RAULITO Loperamide HCl 2 mg 05/12/25 08:13 Loperamide Hcl 2 Mg Capsule PO Q6H PRN loose stool Lorazepam 0.5 mg 05/12/25 09:00 05/14/25 10:19 Lorazepam (*Crx) 0.5 Mg Tablet PO Not Given BID RAULITO Losartan Potassium 25 mg 05/12/25 09:00 05/14/25 09:54 Losartan Potassium 25 Mg Tablet PO 25 mg DAILY RAULITO Administration Olanzapine 5 mg 05/12/25 09:00 05/13/25 16:02 Olanzapine 5 Mg Tablet PO 5 mg TID RAULITO Administration Ondansetron HCl 4 mg 05/12/25 08:13 Ondansetron Hcl Odt 4 Mg Tablet PO Q6H PRN nausea and vomiting Polyethylene Glycol 17 gm 05/12/25 09:00 05/13/25 09:13 Polyethylene Glycol 3350 17 Gm Powd.Pack PO Not Given DAILY RAULITO Thiamine HCl 100 mg 05/12/25 10:00 05/14/25 09:54 Thiamine Hcl 100 Mg Tablet PO 100 mg QAM RAULITO Administration Radiology Results: ITS Impressions Abdomen/Pelvis CT 05/11/25 18:28 IMPRESSION: 1. No evidence of appendicitis, diverticulitis or intestinal obstruction. 2. Cholelithiasis. 3. Hypodensity in the left kidney midpole which may be a mass or focal infection. Follow-up advised. 4. Bilateral femoral head AVN. 5. Right inguinal undescended or retractile right testicle. Labs Labs: Laboratory Results - last 24 hr 05/14/25 05:43 WBC 7.5 RBC 3.80 L Hgb 11.1 L Hct 34.9 L MCV 91.8 MCH 29.2 MCHC 31.8 L RDW 14.4 Plt Count 144 L MPV 10.4 Sodium 142 Potassium 4.0 Chloride 110 H Carbon Dioxide 24 Anion Gap 8 BUN 15 Creatinine 1.06 Estim Creat Clear Calc Not Reportable Estimated GFR > 60 Glucose 86 Calcium 8.6 Magnesium 1.9
[2025-05-14] MEDS: DIVALPROEX SODIUM SPRINKLE 125 MG CAP.DR 500 MG PO (21:17)
[2025-05-15] VITALS (9 sets, daily range): BP systolic 114–139; BP diastolic 66–75; PULSE 46–53; RESP 16; TEMP 36.1–36.9; O2SAT 95–100
--- NOTE | 2025-05-15 02:52 | PC.NURSE ---
I agree with Aleta graduate nurse's assessment on 05/14/25
[2025-05-15 06:26] LABS: Hematocrit 37.6 % (42.0-52.0); Hemoglobin 11.9 g/dL (14.0-18.0); Mean Corpuscular HGB Conc 31.6 g/dl (32-36); Mean Corpuscular Hemoglobin 29.5 pg (26-34); Mean Corpuscular Volume 93.3 fl (80-100); Platelet Count Result 142 k/mm3 (150-375); Red Blood Count 4.03 M/mm3 (4.6-6.20); White Blood Count 7.3 K/mm3 (4.5-10.0)
[2025-05-15 06:36] LABS: Anion Gap 14 mmol/L (4-12); Blood Urea Nitrogen 16 mg/dL (9-20); Calcium 8.6 mg/dL (8.4-10.2); Carbon Dioxide 21 mmol/L (22-30); Chloride 108 mmol/L (98-107); Estimated Glomerular Filt Rate > 60; Glucose 94 mg/dL (65-110); Magnesium 1.9 mg/dL (1.6-2.3); Potassium 3.9 mmol/L (3.4-5.0); Sodium 143 mmol/L (137-145)
[2025-05-15] MEDS: DIVALPROEX SODIUM SPRINKLE 125 MG CAP.DR 500 MG PO ×2 (09:23→23:29)
[2025-05-15] MEDS: ATORVASTATIN 40 MG TABLET 80 MG PO (09:23)
[2025-05-15] MEDS: THIAMINE HCL 100 MG TABLET PO (09:23)
[2025-05-15] MEDS: LOSARTAN POTASSIUM 25 MG TABLET PO (09:23)
[2025-05-15] MEDS: CYANOCOBALAMIN 1,000 MCG TABLET 1000 MCG PO (09:24)
[2025-05-15] MEDS: BACLOFEN 10 MG TABLET PO ×3 (09:24→18:25)
[2025-05-15] MEDS: LANSOPRAZOLE ODT 30 MG TAB.RAP.DR PO (09:24)
[2025-05-15] MEDS: buPROPion HCL XL (24 HR) 150 MG TABCR PO (09:24)
--- NOTE | 2025-05-15 11:42 | P.PNIM_ITS ---
Progress Note: A&P Assessment and Plan (1) Coffee ground emesis: Code(s): K92.0 - Hematemesis Status: Acute Assessment and Plan: * New onset today * NG tube present to LWIS * Protonix 40 mg IVP Q12 hrs * Zofran 4 mg IVP PRN nausea * NPO * Consult GI * Trend labs and VS for hemodynamic instability * Hold any ASA or Anticoagulation. (2) History of stroke: Code(s): Z86.73 - Personal history of transient ischemic attack (TIA), and cerebral infarction without residual deficits Status: Chronic Assessment and Plan: * Chronic in nature with resulting severe dysphagia and impaired communication. * RUE contracture, RLE extreme weakness * Fall precautions (3) HLD (hyperlipidemia): Code(s): E78.5 - Hyperlipidemia, unspecified Status: Chronic Assessment and Plan: * Re-order once pt is taking po meds and once meds are verified and confirmed. (4) Depression: Code(s): F32.A - Depression, unspecified Status: Chronic Assessment and Plan: * Re-order home meds once pt is taking po meds and his home meds are verified and confirmed. (5) Hypertension: Code(s): I10 - Essential (primary) hypertension Status: Chronic Assessment and Plan: * Pt is not taking any po meds at this time. * PRN hydralazine is ordered with parameters to give for SBP>180 and DBP>90. Plan patient with history of alcohol abuse and poor historian unable to provider any ROS, patient was seen by GI and plan was to have EGD to further evaluate to find cause of coffee ground emesis. however patient is too confused and unable to give consent for the procedure and his POA was not responding, however patient did have EGD at [facility], showed erosive esophagitis, patient has not had any emesis while in the hospital, patient was seen by speech therapy and observed patient had difficulty swallowing and coughing, patient was seen by the speech therapist and recommended will have swallow study and further recommendation to follow, will have PT/OT evaluate the patient. Subjective Date/time seen: 05/15/25 11:42 Interval history: Vomiting coffee ground emesis H&P-Narrative: This is a 64 year old male pt who resides at [facility] in [place] and has a hx of CVA, with right sided contracture/flaccidity, severe d ysphagia, HTN, Depression, HLD and Anxiety who is brought to the ER for complaints of having an episode of emesis today that appeared to have coffee ground appearance. Pt is not able to communicate any acute symptoms, and can only nod yes and no. Even with that, it is not evident how much the pt truly understands of the conversation. In the ER an NG tube was placed with return of approximately 10 ml of coffee ground emesis. VSS, and labs notable for Sodium of 149, and WBC's of 14.9. CT abd and pelvis with contrast showing no acute diverticulitis, appendicitis or other acute abdomen, but there are findings of cholelithiasis, bilateral femoral head AVN, a right undescended testicle and a hypodensity in the left kidney with etiology considered being a mass or focal infection. He has received IV Protonix, LR and zofran. He has a noted normal H&H of 12.4/39.6. EMR was reviewed and shows a hx of ETOH abuse in his past. Suspect this may be a potential PUD. He is being admitted for GI evaluation and further management. patient with history of alcohol abuse and poor historian unable to provider any ROS, patient was seen by GI and plan was to have EGD to further evaluate to find cause of coffee ground emesis. however patient is too confused and unable to give consent for the procedure and his POA was not responding, however patient did have EGD at [facility], showed erosive esophagitis, patient has not had any emesis while in the hospital, patient was seen by speech therapy and observed patient had difficulty swallowing and coughing, patient was seen by the speech therapist and recommended will have swallow study and further recommendation to follow, will have PT/OT evaluate the patient. Review of Systems Review of Systems: ROS unobtainable: Yes unobtainable due to medical condition (Severely dysphagic) Exam Narrative: Patient is comfortable, NAD HEENT: eyes are clear and none icteric LUNGS:CTA HEART: RR S1S2 ABD: BS+, Soft and nontender Lower extremities: no edema SKIN: nonjaundiced Neuro: grossly intact. Objective Data Vital Signs Vital Signs: Vital Signs - 24 hr 05/14/25 12:00 05/14/25 14:00 05/14/25 16:00 Temperature 36.4 C L Pulse Rate 49 L 50 L 54 L Respiratory Rate 14 Blood Pressure 115/69 Pulse Oximetry 99 Oxygen Delivery 05/14/25 20:00 05/14/25 21:17 05/14/25 22:00 Temperature 37.1 C Pulse Rate 54 L 54 L Respiratory Rate 18 Blood Pressure 133/61 Pulse Oximetry 96 Oxygen Delivery Room Air 05/15/25 00:00 05/15/25 04:00 05/15/25 06:00 Temperature 36.9 C Pulse Rate 53 L 48 L 50 L Respiratory Rate 16 Blood Pressure 139/75 Pulse Oximetry 100 Oxygen Delivery 05/15/25 08:00 Temperature Pulse Rate Respiratory Rate Blood Pressure Pulse Oximetry Oxygen Delivery Room Air Intake/Output Intake/Output: Intake & Output 05/12/25 05/13/25 05/14/25 05/15/25 23:59 23:59 23:59 23:59 Intake Total 2917.1 1561.5 240 Balance 2917.1 1561.5 240 Meds/Results Medications: Active Medications Generic Name Dose Route Start Last Admin Trade Name Gabrielq PRN Reason Stop Dose Admin Atorvastatin Calcium 80 mg 05/12/25 09:00 05/15/25 09:23 Atorvastatin 40 Mg Tablet PO 80 mg DAILY RAULITO Administration Baclofen 10 mg 05/12/25 09:00 05/15/25 09:24 Baclofen 10 Mg Tablet PO 10 mg TID RAULITO Administration Bupropion HCl 150 mg 05/12/25 09:00 05/15/25 09:24 Bupropion Hcl Xl (24 Hr) 150 Mg Tabcr PO 150 mg DAILY RAULITO Administration Buspirone HCl 15 mg 05/12/25 09:00 05/15/25 10:03 Buspirone Hcl 5 Mg Tablet PO 15 mg TID RAULITO Administration Cyanocobalamin 1,000 mcg 05/12/25 09:00 05/15/25 09:24 Cyanocobalamin 1,000 Mcg Tablet PO 1,000 mcg DAILY RAULITO Administration Divalproex Sodium 500 mg 05/14/25 09:00 05/15/25 09:23 Divalproex Sodium Sprinkle 125 Mg Cap.Dr PO 500 mg Q12HR RAULITO Administration Docusate Sodium 100 mg 05/14/25 09:00 05/15/25 09:24 Docusate Sodium Liq 100 Mg/10 Ml Udc PO Not Given BID [facility] Fish Oil 1 gm 05/12/25 10:00 05/14/25 10:21 [place] 3 Polyunsat Fatty Acids 1 Gm Cap PO Not Given DAILY RAULITO Hydralazine HCl 10 mg 05/11/25 19:56 Hydralazine Hcl 20 Mg/Ml Vial IV PUSH Q8H PRN Blood Pressure - High Lansoprazole 30 mg 05/15/25 09:00 05/15/25 09:24 Lansoprazole Odt 30 Mg Tab.Rap.Dr PO 30 mg DAILY RAULITO Administration Loperamide HCl 2 mg 05/12/25 08:13 Loperamide Hcl 2 Mg Capsule PO Q6H PRN loose stool Lorazepam 0.5 mg 05/14/25 17:43 Lorazepam (*Crx) 0.5 Mg Tablet PO BID PRN Agitation or anxiety Losartan Potassium 25 mg 05/12/25 09:00 05/15/25 09:23 Losartan Potassium 25 Mg Tablet PO 25 mg DAILY RAULITO Administration Olanzapine 5 mg 05/12/25 09:00 05/15/25 09:24 Olanzapine 5 Mg Tablet PO 5 mg TID RAULITO Administration Ondansetron HCl 4 mg 05/12/25 08:13 Ondansetron Hcl Odt 4 Mg Tablet PO Q6H PRN nausea and vomiting Polyethylene Glycol 17 gm 05/12/25 09:00 05/15/25 09:24 Polyethylene Glycol 3350 17 Gm Powd.Pack PO 17 gm DAILY RAULITO Administration Thiamine HCl 100 mg 05/12/25 10:00 05/15/25 09:23 Thiamine Hcl 100 Mg Tablet PO 100 mg QAM RAULITO Administration Radiology Results: ITS Impressions Abdomen/Pelvis CT 05/11/25 18:28 IMPRESSION: 1. No evidence of appendicitis, diverticulitis or intestinal obstruction. 2. Cholelithiasis. 3. Hypodensity in the left kidney midpole which may be a mass or focal infection. Follow-up advised. 4. Bilateral femoral head AVN. 5. Right inguinal undescended or retractile right testicle. Labs Labs: Laboratory Results - last 24 hr 05/15/25 06:17 WBC 7.3 RBC 4.03 L Hgb 11.9 L Hct 37.6 L MCV 93.3 MCH 29.5 MCHC 31.6 L RDW 14.3 Plt Count 142 L MPV 10.0 Sodium 143 Potassium 3.9 Chloride 108 H Carbon Dioxide 21 L Anion Gap 14 H BUN 16 Creatinine 1.17 Estim Creat Clear Calc Not Reportable Estimated GFR > 60 Glucose 94 Calcium 8.6 Magnesium 1.9 Quality VTE Prophylaxis VTE prophylaxis: mechanical ordered
--- NOTE | 2025-05-15 12:45 | P.CONCA_ITS ---
Assessment and Plan Assessment and plan (1) Sinus bradycardia: Code(s): R00.1 - Bradycardia, unspecified Status: Acute Plan Upper GI bleeding Asymptomatic sinus bradycardia History of stroke Plan Avoid AV rachel blocking agent Continue to monitor on telemetry while in the hospital and if heart rate is below 40 awake we will consider further workup History of Present Illness History of Present Illness Consult date/time: 05/15/25 12:45 Reason For Visit: Coffee-ground emesis Narrative: 64-year-old male patient presents to the hospital was emesis was coffee-ground appearance suggestive of GI bleeding. Patient is nonverbal history can be obtained from the patient has history of stroke or was right-sided hemiplegia and contracture. On admission patient was found to have bradycardia with heart rate in the 40s. Per nursing communication patient heart rate has been stable and has not been having problems was hypertension or passing out. He lives in correction.. He does not take medications that can decrease the heart rate Review of Systems 2 Review of Systems: All systems reviewed & are unremarkable except as noted in HPI and below PMFSH Past Medical History Medical History (Updated 05/15/25 @ 12:53 by Ander Conway MD) HLD (hyperlipidemia) Depression Hypertension CVA (cerebral vascular accident) Social History Social History Smoking status: Unknown if ever smoked Alcohol intake: former Substance use: unknown Substance use type: unknown Spiritual care concerns: No Meds Home Medications and Allergies Home Medications ?Medication ?Instructions ?Recorded ?Confirmed ?Type baclofen 10 mg tablet 10 mg PO TID 05/11/25 05/11/25 History buspirone 15 mg tablet 15 mg PO TID 05/11/25 05/11/25 History divalproex 250 mg tablet,delayed 500 mg PO BID 05/11/25 05/11/25 History release lorazepam 0.5 mg tablet 0.5 mg PO BID 05/11/25 05/11/25 History losartan 25 mg tablet 25 mg PO DAILY 05/11/25 05/11/25 History olanzapine 5 mg tablet 5 mg PO TID 05/11/25 05/11/25 History aspirin 325 mg tablet 325 mg PO DAILY 05/12/25 05/12/25 History atorvastatin 80 mg tablet (Lipitor) 80 mg PO DAILY 05/12/25 05/12/25 History bupropion HCl 150 mg 24 hr tablet, 150 mg PO DAILY 05/12/25 05/12/25 History extended release (Wellbutrin XL) cyanocobalamin (vitamin B-12) 1,000 mcg PO DAILY 05/12/25 05/12/25 History 1,000 mcg capsule docusate sodium 250 mg capsule 500 mg PO DAILY 05/12/25 05/12/25 History loperamide 2 mg capsule 2 mg PO Q6H PRN loose stool 05/12/25 05/12/25 History (Anti-Diarrheal (loperamide)) omega 0-oyh-gdu-fish oil 1,000 mg 1 cap PO DAILY 05/12/25 05/12/25 History (120 mg-180 mg) capsule (Fish Oil) ondansetron HCl 4 mg tablet 4 mg PO Q6H PRN nausea and vomiting 05/12/25 05/12/25 History pantoprazole 40 mg tablet,delayed 40 mg PO DAILY 05/12/25 05/12/25 History release polyethylene glycol 3350 17 gram 17 g PO DAILY 05/12/25 05/12/25 History oral powder packet (Miralax) thiamine HCl (vitamin B1) 100 mg 100 mg PO DAILY 05/12/25 05/12/25 History capsule Allergies Allergy/AdvReac Type Severity Reaction Status Date / Time No Known Allergies Allergy Verified 05/11/25 15:31 Vital Signs Vital Signs - 24 hr 05/14/25 14:00 05/14/25 16:00 05/14/25 20:00 Temperature 36.4 C L Pulse Rate 50 L 54 L 54 L Respiratory Rate 14 Blood Pressure 115/69 Pulse Oximetry 99 Oxygen Delivery 05/14/25 21:17 05/14/25 22:00 05/15/25 00:00 Temperature 37.1 C Pulse Rate 54 L 53 L Respiratory Rate 18 Blood Pressure 133/61 Pulse Oximetry 96 Oxygen Delivery Room Air 05/15/25 04:00 05/15/25 06:00 05/15/25 08:00 Temperature 36.9 C Pulse Rate 48 L 50 L Respiratory Rate 16 Blood Pressure 139/75 Pulse Oximetry 100 Oxygen Delivery Room Air Exam 2 Narrative: GENERAL: Chronically ill-appearing, well-nourished, and in no acute distress. HEAD: Normocephalic, atraumatic. EYES: PERRL and EOMI. ENT: Nares clear, no rhinorrhea or epistaxis. Mucous membranes moist. NECK: Supple. CHEST: Clear to auscultation. No respiratory distress. HEART: Regular rate and rhythm. Normal peripheral pulses. ABDOMEN: Soft, nontender, nondistended. Pale/andre-colored stool that is guaiac positive. No gross blood. EXTREMITIES: Right-sided contractures and weakness. SKIN: Warm, dry, no rash. NEURO: Awake alert, aphasic but shakes head yes or no. Results Labs and Meds 05/15/25 06:17 05/15/25 06:17 Lab results: CBC 05/15/25 Range/Units 06:17 WBC 7.3 (4.5-10.0) K/mm3 RBC 4.03 L (4.6-6.20) M/mm3 Hgb 11.9 L (14.0-18.0) g/dL Hct 37.6 L (42.0-52.0) % Plt Count 142 L (150-375) k/mm3 Comprehensive Metabolic Panel 05/15/25 Range/Units 06:17 Sodium 143 (137-145) mmol/L Potassium 3.9 (3.4-5.0) mmol/L Chloride 108 H (98-107) mmol/L Carbon Dioxide 21 L (22-30) mmol/L BUN 16 (9-20) mg/dL Creatinine 1.17 (0.7-1.3) mg/dL Glucose 94 (65-110) mg/dL Calcium 8.6 (8.4-10.2) mg/dL Intake and Output 05/14/25 05/15/25 05/15/25 23:59 07:59 15:59 Other: # Unmeasured Voids 3 # Urine Diapers 2
--- NOTE | 2025-05-15 19:00 | PC.NURSE ---
On 05/15/25, the PIER WORKER, Hanny Reynolds, provided care and completed [employer]yl[employer] documentation on this patient. I have reviewed the PIER WORKER's documentation and agree with the findings.
[2025-05-15] MEDS: LORazepam (*CRX) 0.5 MG TABLET PO (23:30)
[2025-05-16] VITALS (9 sets, daily range): BP systolic 94–137; BP diastolic 59–84; PULSE 51–65; RESP 14–18; TEMP 35.9–37.1; O2SAT 95–98
[2025-05-16 06:15] LABS: Hematocrit 41.9 % (42.0-52.0); Hemoglobin 13.2 g/dL (14.0-18.0); Immature Platelet Fraction Pct 2.2 % (0.9-11.2); Mean Corpuscular HGB Conc 31.5 g/dl (32-36); Mean Corpuscular Hemoglobin 28.8 pg (26-34); Mean Corpuscular Volume 91.3 fl (80-100); Platelet Count Result 151 k/mm3 (150-375); Red Blood Count 4.59 M/mm3 (4.6-6.20); White Blood Count 7.7 K/mm3 (4.5-10.0)
[2025-05-16 06:26] LABS: Anion Gap 13 mmol/L (4-12); Blood Urea Nitrogen 15 mg/dL (9-20); Calcium 8.9 mg/dL (8.4-10.2); Carbon Dioxide 22 mmol/L (22-30); Chloride 109 mmol/L (98-107); Estimated Glomerular Filt Rate > 60; Glucose 93 mg/dL (65-110); Magnesium 2.1 mg/dL (1.6-2.3); Potassium 3.9 mmol/L (3.4-5.0); Sodium 144 mmol/L (137-145)
--- NOTE | 2025-05-16 09:40 | PCSTNOTE ---
Attempted to complete MBS but per xray transporter that neither he nor the RN could awake pt for testing; Will attempt again tomorrow.
[2025-05-16] MEDS: LANSOPRAZOLE ODT 30 MG TAB.RAP.DR PO (11:38)
[2025-05-16] MEDS: BACLOFEN 10 MG TABLET PO ×2 (11:38→17:05)
[2025-05-16] MEDS: LOSARTAN POTASSIUM 25 MG TABLET PO (11:38)
[2025-05-16] MEDS: buPROPion HCL XL (24 HR) 150 MG TABCR PO (11:39)
[2025-05-16] MEDS: THIAMINE HCL 100 MG TABLET PO (11:39)
[2025-05-16] MEDS: DIVALPROEX SODIUM SPRINKLE 125 MG CAP.DR 500 MG PO ×2 (11:39→20:35)
[2025-05-16] MEDS: ATORVASTATIN 40 MG TABLET 80 MG PO (11:39)
[2025-05-16] MEDS: CYANOCOBALAMIN 1,000 MCG TABLET 1000 MCG PO (11:41)
--- NOTE | 2025-05-16 15:21 | P.PNIM_ITS ---
Progress Note: A&P Assessment and Plan (1) Coffee ground emesis: Code(s): K92.0 - Hematemesis Status: Acute Assessment and Plan: * New onset today * NG tube present to LWIS * Protonix 40 mg IVP Q12 hrs * Zofran 4 mg IVP PRN nausea * NPO * Consult GI * Trend labs and VS for hemodynamic instability * Hold any ASA or Anticoagulation. (2) History of stroke: Code(s): Z86.73 - Personal history of transient ischemic attack (TIA), and cerebral infarction without residual deficits Status: Chronic Assessment and Plan: * Chronic in nature with resulting severe dysphagia and impaired communication. * RUE contracture, RLE extreme weakness * Fall precautions (3) HLD (hyperlipidemia): Code(s): E78.5 - Hyperlipidemia, unspecified Status: Chronic Assessment and Plan: * Re-order once pt is taking po meds and once meds are verified and confirmed. (4) Depression: Code(s): F32.A - Depression, unspecified Status: Chronic Assessment and Plan: * Re-order home meds once pt is taking po meds and his home meds are verified and confirmed. (5) Hypertension: Code(s): I10 - Essential (primary) hypertension Status: Chronic Assessment and Plan: * Pt is not taking any po meds at this time. * PRN hydralazine is ordered with parameters to give for SBP>180 and DBP>90. Plan patient with history of alcohol abuse and poor historian unable to provider any ROS, patient was seen by GI and plan was to have EGD to further evaluate to find cause of coffee ground emesis. however patient is too confused and unable to give consent for the procedure and his POA was not responding, however patient did have EGD at [facility], showed erosive esophagitis, patient has not had any emesis while in the hospital, patient was seen by speech therapy and observed patient had difficulty swallowing and coughing, patient was seen by the speech therapist and recommended will have swallow study however today patient is somnolent unable to participate in MBS, will monitor and further recommendation to follow, will have PT/OT evaluate the patient. Subjective Date/time seen: 05/16/25 15:21 Interval history: Vomiting coffee ground emesis H&P-Narrative: This is a 64 year old male pt who resides at [facility] in [place] and has a hx of CVA, with right sided contracture/flaccidity, severe dysphagia, HTN, Depression, HLD and Anxiety who is brought to the ER for complaints of having an episode of emesis today that appeared to have coffee ground appearance. Pt is not able to communicate any acute symptoms, and can only nod yes and no. Even with that, it is not evident how much the pt truly understands of the conversation. In the ER an NG tube was placed with return of approximately 10 ml of coffee ground emesis. VSS, and labs notable for Sodium of 149, and WBC's of 14.9. CT abd and pelvis with contrast showing no acute diverticulitis, appendicitis or other acute abdomen, but there are findings of cholelithiasis, bilateral femoral head AVN, a right undescended testicle and a hypodensity in the left kidney with etiology considered being a mass or focal infection. He has received IV Protonix, LR and zofran. He has a noted normal H&H of 12.4/39.6. EMR was reviewed and shows a hx of ETOH abuse in his past. Suspect this may be a potential PUD. He is being admitted for GI evaluation and further management. patient with history of alcohol abuse and poor historian unable to provider any ROS, patient was seen by GI and plan was to have EGD to further evaluate to find cause of coffee ground emesis. however patient is too confused and unable to give consent for the procedure and his POA was not responding, however patient did have EGD at [facility], showed erosive esophagitis, patient has not had any emesis while in the hospital, patient was seen by speech therapy and observed patient had difficulty swallowing and coughing, patient was seen by the speech therapist and recommended will have swallow study however today patient is somnolent unable to participate in MBS, will monitor and further recommendation to follow, will have PT/OT evaluate the patient. Review of Systems Review of Systems: ROS unobtainable: Yes unobtainable due to medical condition (Severely dysphagic) Exam Narrative: Patient is comfortable, NAD HEENT: eyes are clear and none icteric LUNGS:CTA HEART: RR S1S2 ABD: BS+, Soft and nontender Lower extremities: no edema SKIN: nonjaundiced Neuro: grossly intact. Objective Data Vital Signs Vital Signs: Vital Signs - 24 hr 05/15/25 16:00 05/15/25 20:00 05/15/25 20:00 Temperature Pulse Rate 49 L 53 L 53 L Respiratory Rate 16 Blood Pressure Pulse Oximetry 96 Oxygen Delivery Room Air 05/15/25 22:00 05/16/25 00:00 05/16/25 04:00 Temperature 36.9 C Pulse Rate 53 L 53 L 51 L Respiratory Rate 16 Blood Pressure 114/68 Pulse Oximetry 96 Oxygen Delivery 05/16/25 06:00 05/16/25 11:31 05/16/25 13:42 Temperature 36.8 C 35.9 C L Pulse Rate 65 62 Respiratory Rate 18 14 Blood Pressure 137/59 L 94/63 L Pulse Oximetry 97 95 Oxygen Delivery Room Air Intake/Output Intake/Output: Intake & Output 05/13/25 05/14/25 05/15/25 05/16/25 23:59 23:59 23:59 23:59 Intake Total 1561.5 240 240 240 Balance 1561.5 240 240 240 Meds/Results Medications: Active Medications Generic Name Dose Route Start Last Admin Trade Name Gabrielq PRN Reason Stop Dose Admin Atorvastatin Calcium 80 mg 05/12/25 09:00 05/16/25 11:39 Atorvastatin 40 Mg Tablet PO 80 mg DAILY RAULITO Administration Baclofen 10 mg 05/12/25 09:00 05/16/25 11:38 Baclofen 10 Mg Tablet PO 10 mg TID RAULITO Administration Bupropion HCl 150 mg 05/12/25 09:00 05/16/25 11:39 Bupropion Hcl Xl (24 Hr) 150 Mg Tabcr PO 150 mg DAILY RAULITO Administration Buspirone HCl 15 mg 05/12/25 09:00 05/16/25 11:38 Buspirone Hcl 5 Mg Tablet PO 15 mg TID RAULITO Administration Cyanocobalamin 1,000 mcg 05/12/25 09:00 05/16/25 11:41 Cyanocobalamin 1,000 Mcg Tablet PO 1,000 mcg DAILY RAULITO Administration Divalproex Sodium 500 mg 05/14/25 09:00 05/16/25 11:39 Divalproex Sodium Sprinkle 125 Mg Cap.Dr PO 500 mg Q12HR RAULITO Administration Docusate Sodium 100 mg 05/14/25 09:00 05/16/25 11:40 Docusate Sodium Liq 100 Mg/10 Ml Udc PO 100 mg BID RAULITO Administration Fish Oil 1 gm 05/12/25 10:00 05/14/25 10:21 [place] 3 Polyunsat Fatty Acids 1 Gm Cap PO Not Given DAILY RAULITO Hydralazine HCl 10 mg 05/11/25 19:56 Hydralazine Hcl 20 Mg/Ml Vial IV PUSH Q8H PRN Blood Pressure - High Lansoprazole 30 mg 05/15/25 09:00 05/16/25 11:38 Lansoprazole Odt 30 Mg Tab.Rap.Dr PO 30 mg DAILY RAULITO Administration Loperamide HCl 2 mg 05/12/25 08:13 Loperamide Hcl 2 Mg Capsule PO Q6H PRN loose stool Lorazepam 0.5 mg 05/14/25 17:43 05/15/25 23:30 Lorazepam (*Crx) 0.5 Mg Tablet PO 0.5 mg BID PRN Administration Agitation or anxiety Losartan Potassium 25 mg 05/12/25 09:00 05/16/25 11:38 Losartan Potassium 25 Mg Tablet PO 25 mg DAILY RAULITO Administration Olanzapine 5 mg 05/12/25 09:00 05/16/25 11:38 Olanzapine 5 Mg Tablet PO 5 mg TID RAULITO Administration Ondansetron HCl 4 mg 05/12/25 08:13 Ondansetron Hcl Odt 4 Mg Tablet PO Q6H PRN nausea and vomiting Polyethylene Glycol 17 gm 05/12/25 09:00 05/16/25 11:40 Polyethylene Glycol 3350 17 Gm Powd.Pack PO 17 gm DAILY RAULITO Administration Thiamine HCl 100 mg 05/12/25 10:00 05/16/25 11:39 Thiamine Hcl 100 Mg Tablet PO 100 mg QAM RAULITO Administration Radiology Results: ITS Impressions Abdomen/Pelvis CT 05/11/25 18:28 IMPRESSION: 1. No evidence of appendicitis, diverticulitis or intestinal obstruction. 2. Cholelithiasis. 3. Hypodensity in the left kidney midpole which may be a mass or focal infection. Follow-up advised. 4. Bilateral femoral head AVN. 5. Right inguinal undescended or retractile right testicle. Labs Labs: Laboratory Results - last 24 hr 05/16/25 05/16/25 05:19 09:28 WBC 7.7 RBC 4.59 L Hgb 13.2 L Hct 41.9 L MCV 91.3 MCH 28.8 MCHC 31.5 L RDW 14.6 H Plt Count 151 MPV 10.1 % Immature Plt Fraction 2.2 Sodium 144 Potassium 3.9 Chloride 109 H Carbon Dioxide 22 Anion Gap 13 H BUN 15 Creatinine 1.11 Estim Creat Clear Calc Not Reportable Estimated GFR > 60 Glucose 93 POC Capillary Glucose 87 Calcium 8.9 Magnesium 2.1 Quality VTE Prophylaxis VTE prophylaxis: mechanical ordered
[2025-05-17] VITALS: PULSE 57
[2025-05-17 03:34] VITALS: PULSE 55
[2025-05-17 04:42] VITALS: BP 101/75; PULSE 100; RESP 16; TEMP 36.6; O2SAT 92
[2025-05-17 06:04] LABS: Hematocrit 41.0 % (42.0-52.0); Hemoglobin 12.8 g/dL (14.0-18.0); Mean Corpuscular HGB Conc 31.2 g/dl (32-36); Mean Corpuscular Hemoglobin 29.0 pg (26-34); Mean Corpuscular Volume 93.0 fl (80-100); Platelet Count Result 149 k/mm3 (150-375); Red Blood Count 4.41 M/mm3 (4.6-6.20); White Blood Count 6.4 K/mm3 (4.5-10.0)
[2025-05-17 06:24] LABS: Anion Gap 12 mmol/L (4-12); Blood Urea Nitrogen 21 mg/dL (9-20); Calcium 8.8 mg/dL (8.4-10.2); Carbon Dioxide 21 mmol/L (22-30); Chloride 108 mmol/L (98-107); Estimated Glomerular Filt Rate 56; Glucose 90 mg/dL (65-110); Magnesium 2.1 mg/dL (1.6-2.3); Potassium 4.0 mmol/L (3.4-5.0); Sodium 141 mmol/L (137-145)
[2025-05-17 08:00] VITALS: PULSE 60
--- NOTE | 2025-05-17 08:47 | PM.DS ---
DS: Admitting Diagnosis Discharge Date 05/17/25 Admitting Diagnosis Vomiting coffee ground emesis DS: Discharge Diagnosis Discharge Diagnosis (1) Coffee ground emesis: Code(s): K92.0 - Hematemesis Status: Acute Assessment and Plan: New onset today NG tube present to LWIS Protonix 40 mg IVP Q12 hrs Zofran 4 mg IVP PRN nausea NPO Consult GI Trend labs and VS for hemodynamic instability Hold any ASA or Anticoagulation. (2) History of stroke: Code(s): Z86.73 - Personal history of transient ischemic attack (TIA), and cerebral infarction without residual deficits Status: Chronic Assessment and Plan: Chronic in nature with resulting severe dysphagia and impaired communication. RUE contracture, RLE extreme weakness Fall precautions (3) HLD (hyperlipidemia): Code(s): E78.5 - Hyperlipidemia, unspecified Status: Chronic Assessment and Plan: Re-order once pt is taking po meds and once meds are verified and confirmed. (4) Depression: Code(s): F32.A - Depression, unspecified Status: Chronic Assessment and Plan: Re-order home meds once pt is taking po meds and his home meds are verified and confirmed. (5) Hypertension: Code(s): I10 - Essential (primary) hypertension Status: Chronic Assessment and Plan: Pt is not taking any po meds at this time. PRN hydralazine is ordered with parameters to give for SBP>180 and DBP>90. Plan patient with history of alcohol abuse and poor historian unable to provider any ROS, patient was seen by GI and plan was to have EGD to further evaluate to find cause of coffee ground emesis. however patient is too confused and unable to give consent for the procedure and his POA was not responding, however patient did have EGD at [facility], showed erosive esophagitis, patient has not had any emesis while in the hospital, patient was seen by speech therapy and observed patient had difficulty swallowing and coughing, patient was seen by the speech therapist and recommended will have swallow study however today patient is somnolent unable to participate in MBS, will monitor and further recommendation to follow, will have PT/OT evaluate the patient. DS: Summary Hospital Course Hospital Course: patient with history of alcohol abuse and poor historian unable to provider any ROS, patient was seen by GI and plan was to have EGD to further evaluate to find cause of coffee ground emesis. however patient is too confused and unable to give consent for the procedure and his POA was not responding, however patient did have EGD at [facility], showed erosive esophagitis, patient has not had any emesis while in the hospital, patient was seen by speech therapy and observed patient had difficulty swallowing and coughing, patient was seen by the speech therapist and recommended will have swallow study however today patient is somnolent unable to participate in MBS, will monitor and further recommendation to follow, will have PT/OT evaluate the patient. patient clinical symptoms are his baseline and he is clinically stable, will discharge patient back to OR today. Time Spent with Patient Time attestation: Total time spent providing and/or coordinating discharge services: Exam Narrative: Patient is comfortable, NAD HEENT: eyes are clear and none icteric LUNGS:CTA HEART: RR S1S2 ABD: BS+, Soft and nontender Lower extremities: no edema SKIN: nonjaundiced Neuro: grossly intact. DS: Data Data Completed and Pending Labs on day of discharge: Labs from last 24 hours 05/17/25 05/16/25 05/16/25 05:35 20:40 09:28 WBC 6.4 RBC 4.41 L Hgb 12.8 L Hct 41.0 L MCV 93.0 MCH 29.0 MCHC 31.2 L RDW 14.6 H Plt Count 149 L MPV 10.1 Sodium 141 Potassium 4.0 Chloride 108 H Carbon Dioxide 21 L Anion Gap 12 BUN 21 H Creatinine 1.29 Estim Creat Clear Calc Not Reportable Estimated GFR 56 L Glucose 90 POC Capillary Glucose 95 87 Calcium 8.8 Magnesium 2.1 Discharge Plan Discharge Attending physician on discharge: Brett Lee Consulting providers: Ander Conway; You Thornton; Elver Cortes; Bridget Suarez; Terry Whitman; Ángel Marin Discharging Clinician: Gustabo Doran Patient Disposition: OR Shelter/Asst Living Activity: as tolerated Diet: heart healthy Discharge Instructions: Patient to follow up with his primary care provider as soon as possible. Patient Instructions: Antibiotic Form Patient Language: Salvadorean Stand Alone Forms: General Discharge Information Follow-up/Referrals: Bailey,MD Donaldo [Primary Care Provider] - Discharge Medications: Continued olanzapine 5 mg tablet 5 mg PO TID lorazepam 0.5 mg tablet 0.5 mg PO BID baclofen 10 mg tablet 10 mg PO TID buspirone 15 mg tablet 15 mg PO TID losartan 25 mg tablet 25 mg PO DAILY divalproex 250 mg tablet,delayed release (DR/EC) 500 mg PO BID docusate sodium 250 mg capsule 500 mg PO DAILY omega [id number] oil [Fish Oil] 1,000 (120-180) mg capsule 1 cap PO DAILY atorvastatin [Lipitor] 80 mg tablet 80 mg PO DAILY loperamide [Anti-Diarrheal (loperamide)] 2 mg capsule 2 mg PO Q6H PRN (Reason: loose stool) ondansetron HCl 4 mg tablet 4 mg PO Q6H PRN (Reason: nausea and vomiting) polyethylene glycol 3350 [Miralax] 17 gram powder in packet 17 g PO DAILY pantoprazole 40 mg tablet,delayed release (DR/EC) 40 mg PO DAILY Patient Comments: 3 months Started 05/05/25-08/05/25 thiamine HCl (vitamin B1) 100 mg capsule 100 mg PO DAILY cyanocobalamin (vitamin B-12) 1,000 mcg capsule 1,000 mcg PO DAILY bupropion HCl [Wellbutrin XL] 150 mg tablet extended release 24 hr 150 mg PO DAILY aspirin 325 mg tablet 325 mg PO DAILY Other Ambulatory Orders: [place] cardiac event monitor (Routine) Timeframe: 7 Days Location: Determined by Patient Ordered By: Laura Rogers Date of admission: 05/12/25 15:04 Primary Care Provider: Bailey,Doanldo Admitting Provider: Brett Lee Attending physician on admission: Gustabo Doran Condition: Stable
--- NOTE | 2025-05-17 10:55 | PCSTNOTE ---
Please refer to the Modified Barium Swallow Evaluation in the EMR.
--- NOTE | 2025-05-17 13:13 | PC.NURSE ---
Pt on stretcher to go back to [place]. Phone call received from [facility] cardiology stating that the patient needed to be discharged with a heart monitor. No notes in chart or orders to support that. Call made back to cardiology. They state that they have an order downstairs. Reminded them that we cannot see that and that from our side we do not even have a note supporting the need for an outpatient heart monitor. Request made to call the ordering physician. order for 7 day outpatient heart monitor placed. Nargis was given permission to go downstairs and have monitor placed.
== END 2025-05-17 12:55 | DRG 378 ==
LOC: ANHED 19:08 → ANH3MEDSUR 19:39
PROVIDERS: Nurse Practitioner Adult Health; Admitting Provider Internal Medicine; Emergency Provider Emergency Medicine; PCP Internal Medicine; Visit Provider Family Medicine
DX: K92.0 Hematemesis (principal); I69.351 Hemiplegia and hemiparesis following cerebral infarction affecting right dominant side; I69.391 Dysphagia following cerebral infarction; R13.10 Dysphagia, unspecified; R00.1 Bradycardia, unspecified; E78.5 Hyperlipidemia, unspecified; F32.A Depression, unspecified; F41.9 Anxiety disorder, unspecified; F10.10 Alcohol abuse, uncomplicated; I10 Essential (primary) hypertension
CPT/HCPCS: 36415; 74177; 74230; 80048; 80053; 82948; 83690; 83735; 85025; 85027; 85055; 85610; 85730; 92526; 92610; 92611; 96361; 96374; 96375; 99285; A9270; G0378; J2060; J2405; J2470; J7030; J7120; Q9967